=== PATIENT | female | born 1955 | race Caucasian/White ===

== ENCOUNTER 2021-09-28 18:39 | Outpatient (REF) | payer OTHER, SELFPAY ==
[2021-09-28 19:04] LABS: Bilirubin Negative (Negative); Blood Negative (Negative); Clarity Clear (Clear); Glucose Negative (Negative); Ketones Negative (Negative); Leukocyte Esterase Negative (Negative); Nitrite Negative (Negative); Specific Gravity 1.025 (1.005-1.025); Urobilinogen 0.2 EU/dL (Up TO 0.2); pH 6.5 (5-8)
== END 2021-09-28 18:40 | disposition home or self-care (01) ==
LOC: NCHCN 18:39
PROVIDERS: Visit Provider Nurse Practitioner Family
DX: N89.8 Other specified noninflammatory disorders of vagina (principal)
CPT/HCPCS: 81003; 87480; 87510; 87660

== ENCOUNTER 2022-02-10 16:40 | Outpatient (REF) | payer OTHER, SELFPAY ==
[2022-02-10 19:09] LABS: Abs Immature Grans 0.02 10^3/uL (0.0-0.06); Absolute Basophil Count 0.08 10^3/uL (0.0-0.2); Absolute Eosinophil Count 0.23 10^3/uL (0.0-0.7); Absolute Lymphocyte Count 2.14 10^3/uL (1.2-3.4); Absolute Monocyte Count 0.65 10^3/uL (0.1-0.8); Absolute Neutrophil Count 4.03 10^3/uL (1.2-6.7); Basophils % 1.1; Eosinophils % 3.2; HCT 39.2 % (36.0-46.0); Immature Grans % 0.3; Lymphocytes % 29.9; MCH 29.5 pg (27.0-33.0); MCHC 33.2 % (32.0-36.0); MCV 89 fL (80-95); MPV 10.6 fL (8.0-11.0); Monocytes % 9.1; Neutrophils % 56.4; Platelet Count 218 10^3/uL (130-400); RDW 12.7 % (11.7-14.6); RDW-SD 41.6 fL; WBC 7.15 10^3/uL (4.4-10.8)
[2022-02-10 19:18] LABS: Anion Gap 7.1 mmol/L (3-11); BUN 21 mg/dL (7-18); CO2 27.9 mmol/L (21.0-32.0); CREATININE 0.9 mg/dL (0.55-1.02); Calcium 8.6 mg/dL (8.5-10.1); Chloride 104 mmol/L (98-107); Estimated GFR 70.07 (mL/min/1.73m2); Glucose 136 mg/dL (74-106); Potassium 3.3 mmol/L (3.5-5.1); Sodium 139 mmol/L (136-145)
== END 2022-02-10 16:41 | disposition home or self-care (01) ==
LOC: LBN 16:40
PROVIDERS: Visit Provider Nurse Practitioner Family
DX: R10.9 Unspecified abdominal pain (principal); R19.7 Diarrhea, unspecified
CPT/HCPCS: 80048; 85025

== ENCOUNTER 2022-03-07 02:39 | Outpatient (CLI) | payer OTHER, SELFPAY ==
[2022-03-07] MEDS: Barium Sulfate 2% W/V-Berry Smoothie 450 ML BTL 900 ML PO (12:10)
--- NOTE | 2022-03-07 14:55 | DI.CT_ITS ---
Exam(s) CT ABDOMEN PELVIS W EXAM: CT ABDOMEN PELVIS W CLINICAL HISTORY: ABD PAIN R10.9 DIARRHEA R19.7. TECHNIQUE: Imaging Protocol: Axial computed tomography images with coronal and sagittal reformatted images were created and reviewed CONTRAST MATERIAL: Intravenous: Omnipaque 350 Contrast volume:100 ml Oral: yes COMPARISON: No exams were available for comparison FINDINGS: ABDOMEN: Lung Bases: Large hiatal hernia containing the entire stomach as well as duodenum and some mesenteric fat. No obstruction. Liver: Normal density. No measurable mass. Gallbladder and biliary tract: No radiodense calculus or dilation. Pancreas: Normal density, no abnormal calcifications or inflammatory process. Spleen: Normal. Kidneys: Normal size, contour and axis. No radiodense stones or obstructive uropathy. No masses seen. Large cyst lower pole right kidney. Adrenal glands: No masses seen. Abdominal Aorta: Abdominal portion non-dilated. PELVIS: Bladder: No gross wall thickening. No calculi.No focal mass. Small air bubble within bladder. This could be secondary to recent catheterization. Clinical correlation recommended. Bowel: Diverticulosis noted transverse, descending and sigmoid colon. No evidence of diverticulitis. Some contrast is seen within the sigmoid however this area is not well distended. There is a quest ionable area of focal wall thickening in the proximal sigmoid which could represent contraction. Mas s not entirely excluded. No dilatation proximally. colonoscopy correlation recommended. Normal anthony ntity of stool. Peritoneal cavity: No ascites, collection or mesenteric inflammatory response. Bones: Mild compression fracture superior endplate T12. Degenerative disc changes L4-5 and L5-S1. Reproductive organs: Unremarkable. Pessary noted. Lymph nodes: Unremarkable. Impression: Diverticulosis. No evidence of diverticulitis. Question of of area of narrowing in the sigmoid whic h could represent contraction, most muscular hypertrophy or mass. Correlation with colonoscopy recom mended. Large hiatal hernia without evidence of obstruction. Unexpected findings RADIATION DOSE DELIVERED: 1,052.69mGy.cm Total DLP DATA REPOSITORY: All CT scans at this facility are submitted to the National Radiology Data Registry (NRDR) Dose Index Registry (DIR) with the [employer] (ACR). RADIATION OPTIMIZATION: All CT scans at this facility use at least one of these dose optimization te chniques: automated exposure control; mA and/or kV adjustment per patient size (includes targeted exa ms where dose is matched to clinical indication); or iterative reconstruction.
[2022-03-07] MEDS: Omnipaque 350 MG/ML 500 ML BTL-Imaging package 100 ML IJ (15:05)
== END 2022-03-07 02:59 ==
LOC: DI 02:39
PROVIDERS: Visit Provider Nurse Practitioner Family
DX: K57.30 Diverticulosis of large intestine without perforation or abscess without bleeding (principal); K44.9 Diaphragmatic hernia without obstruction or gangrene
CPT/HCPCS: 74177

== ENCOUNTER 2022-03-07 11:00 | Outpatient (REF) | payer OTHER, SELFPAY ==
--- NOTE | 2022-03-07 09:45 | PAPFT_PTH ---
PATIENT: Liliana Keen LOC: [facility]#:[id number] AGE/SX: 66/F ROOM: RE03/07/[address]: Mayra Akins : 1955 BED: DIS: 03/07/2022 SPEC #: [id number] RECD: 03/08/22 12:48 STATUS: ERIC REQ #: [id number] NYASIA: 03/07/22 09:[address]: Rosalind Akins DEPT: [facility] Cytology RECD BY: Syeda Meredith ENTERED: 03/08/22 12:49 SP TYPE: PAPFT OT DR: Unknown,Unknown Tissues: 1 - CX/ENDOCX FOR PAP SMEARS Procedures: PAP THIN PREP/UVM Screening HPV DNA PROBE Comments: [id number]
== END 2022-03-07 11:01 | disposition home or self-care (01) ==
LOC: NCHCN 11:00
PROVIDERS: Visit Provider Nurse Practitioner Family
DX: Z11.51 Encounter for screening for human papillomavirus (HPV); Z01.419 Encounter for gynecological examination (general) (routine) without abnormal findings
CPT/HCPCS: 88142; 87624

== ENCOUNTER → 2022-03-11 12:47 | Outpatient (BNVA) | payer OTHER, SELFPAY | PROVIDERS: PCP Nurse Practitioner Family; Visit Provider Surgery | DX: R19.7 Diarrhea, unspecified (principal); K58.0 Irritable bowel syndrome with diarrhea; K57.90 Diverticulosis of intestine, part unspecified, without perforation or abscess without bleeding; E11.9 Type 2 diabetes mellitus without complications; K21.9 Gastro-esophageal reflux disease without esophagitis | CPT/HCPCS: 99204; 99243 ==

== ENCOUNTER 2022-03-22 16:44 | Outpatient (REF) | payer OTHER, SELFPAY ==
--- NOTE | 2022-03-22 14:30 | ENDOMET_PTH ---
PATIENT: Liliana Keen LOC: [facility] U#:[id number] AGE/SX: 66/F ROOM: RE03/22/[address]: Eli Mckinnon MD : 1955 BED: DIS: 03/22/2022 SPEC #: [id number] RECD: 03/22/22 17:37 STATUS: ERIC REQ #: [id number] NYASIA: 03/22/22 14:[address]: Eli Mckinnon DEPT: Surgical Specimen RECD BY: Syeda Meredith ENTERED: 03/22/22 17:38 SP TYPE: Endomet OTHR DR: Mayra Akins Tissues: 1 - ENDOMETRIUM BX/MICHEAL Procedures: GROSS AND MICRO LEVEL 4 Comments: [id number]
== END 2022-03-22 16:45 | disposition home or self-care (01) ==
LOC: LBN 16:44
PROVIDERS: PCP Nurse Practitioner Family; Visit Provider Obstetrics & Gynecology
DX: N95.0 Postmenopausal bleeding (principal); N85.01 Benign endometrial hyperplasia; N72 Inflammatory disease of cervix uteri; N85.8 Other specified noninflammatory disorders of uterus
CPT/HCPCS: 88305

== ENCOUNTER 2022-03-23 01:19 | Outpatient (CLI) | payer OTHER, SELFPAY ==
--- NOTE | 2022-03-23 | DI.MAMMO_ITS ---
Exam(s) MAMMO SCREENING EXAM: MAMMO SCREENING CLINICAL HISTORY: SCREENING, Z12.39 TECHNIQUE: Bilateral full field digital CC and MLO mammographic images were obtained with 3D tomosyn thesis and utilizing computer aided detection (CAD). COMPARISON: None. FINDINGS: Masses/Architectural Distortion: None seen. Microcalcifications: No suspicious pleomorphic-type are seen. Skin Thickening/Nipple Retraction: None. IMPRESSION: 1. No significant interval change with no specific features of malignancy noted. 2. Unless there is more urgent need, screening mammography is recommended, as per [employer] [place] guidelines. BI-RADS Category 1 - Negative Breast Density - Category B - Scattered areas of fibroglandular density Breast density category C or D implies that the patient has dense breast tissue. Dense breast tissue is very common and is not abnormal but dense breast tissue can make it harder to find cancer on a ma mmogram. Also, dense breast tissue may increase their breast cancer risk. This information about the result of the mammogram report was provided to the patient to raise their awareness. Use this report when you speak with the patient about their risks for breast cancer, which includes their family hist ory. At that time, you may recommend for more screening tests (Ultrasound or MRI) as they might be us eful based on their risk. A negative radiographic report should not delay biopsy if a dominant or clinically suspicious mass is present. Up to ten percent of cancers are not identified on mammography. A negative report may reinforce clinical impression. Adenosis and dense breasts may obscure an underlying neoplasm. False positive reports average 6 to 10%. Patient will receive a letter notifying them of these results.
== END 2022-03-23 01:39 ==
LOC: DI 01:19
PROVIDERS: PCP Nurse Practitioner Family; Visit Provider Nurse Practitioner Family
DX: Z12.31 Encounter for screening mammogram for malignant neoplasm of breast (principal)
CPT/HCPCS: 77063; 77067

== ENCOUNTER 2022-04-05 08:16 | Day surgery (SDC) | payer OTHER, SELFPAY ==
--- NOTE | 2022-04-04 20:48 | W.PM.DSUDISC ---
Date of service: 04/05/22 Time of Service: 10:24 Discharge Plan Disposition Patient Disposition: Home Condition: Good Discharge Details Reason For Visit: Colonoscopy Attending Provider: Valerio Hicks Primary Care Provider: Rosalind Akins Home Meds and New Rx's Prescriptions: Continued zinc acetate 50 mg (zinc) capsule 50 mg PO BID cholecalciferol (vitamin D3) 125 mcg (5,000 unit) capsule 125 mcg PO DAILY ascorbic acid (vitamin C) 1,000 mg capsule 1 g PO BID Label Comments: 03/22/22- pt reports taking one pill of Vitamin C twice a day, thinks that it might be 1000 mg. aspirin 81 mg tablet,delayed release (DR/EC) 81 mg PO DAILY bupropion HCl 150 mg tablet extended release 24 hr 150 mg PO QAM loperamide 2 mg capsule 4 mg PO TID PRN alendronate 70 mg tablet 70 mg PO QWEEK metformin 1,000 mg tablet 1,000 mg PO BID losartan 100 mg tablet 100 mg PO DAILY hydrochlorothiazide 25 mg tablet 25 mg PO DAILY atorvastatin 40 mg tablet 40 mg PO QHS Myrbetriq 50 mg tablet extended release 24 hr 50 mg PO DAILY metoprolol succinate 100 mg tablet extended release 24 hr 100 mg PO DAILY amlodipine 10 mg tablet 10 mg PO DAILY omeprazole 20 mg capsule,delayed release(DR/EC) 40 mg PO .am hyoscyamine sulfate 0.375 mg tablet extended release 12 hr 0.375 mg PO Q12H PRN citalopram 20 mg tablet 40 mg PO DAILY Discontinued polyethylene glycol 3350 17 gram/dose powder 238 g PO ONCE Qty: 238 0RF Rx Instructions: take per colonoscopy instructions bisacodyl [Dulcolax (bisacodyl)] 5 mg tablet,delayed release (DR/EC) 5 mg PO ONCE Qty: 4 0RF Rx Instructions: take per colonoscopy instructions Discharge Instructions Additional Instructions: And neck, we were able to complete your upper and lower endoscopies today without any difficulty. You have a large hiatal hernia. This would explain upper gastrointestinal discomfort like heartburn symptoms. This can be fixed with an operation, but it is not a procedure that the surgeons here performed. We are happy to place a referral if you would like a second opinion regarding the hiatal hernia management. During your colonoscopy, I performed random biopsies of multiple parts of the large intestine to see if I can explain your diarrhea. It would take a while for those biopsies to result, but we will set up an appointment with you and Dr. Huntley to review them. You also have diverticulosis, and 1 single rectal polyp. The polyp was removed completely. Again, it will take a little while to get the results of the polyp pathology report. 1. If tolerated, consume a soft, low fiber diet for 1-2 days. 2[address] Do not drive, drink alcohol, operate machinery, make critical decisions, or do activities that require coordination or balance for 24 hours. 3. Because air was put into your colon during the procedure, expelling air from your rectum (passing gas or farting) is normal. 4. You may not have a bowel movement for 1-3 days because of the colonoscopy prep. This is normal. 5. Go directly to the emergency room if you notice any of the following: Develop chills (warm to touch), or if you have a thermometer and your temperature is above 101 Difficulty breathing or difficultly swallowing Persistent vomiting Severe abdominal pain, other than gas cramps Severe chest pain Black, tarry stools Any bleeding ? exceeding one tablespoon 6. Call your physician if the site where your intravenous was started becomes red, swollen, painful, and warm to touch. 7. Your physician has reviewed your pre-procedure medications. Please continue to take those medications as previously ordered. You will be given specific information/education regarding any changes to your medications before leaving. Referrals: Radha Huntley DO [OSTEOPATHIC DOCTOR] - (2 weeks) Activity:: Activity as Tolerated Diet:: As Tolerated Discharge Orders Discharge Orders: Discharge Order (Routine); Ordered 04/04/22 Ordered By: Valerio Hicks DS: Diagnosis Discharge Diagnosis (1) Diarrhea: Status: Acute Asessment and Plan: We will schedule follow-up appointment with you and Dr. Huntley to discuss the pathology results from the random biopsies
--- NOTE | 2022-04-04 20:50 | COLE_ITS ---
Date of service: 04/05/22 Time of Service: 10:27 Colonoscopy Report Date of procedure: 04/05/22 Pre-op diagnosis general: Diarrhea Post-op diagnosis procedure note: other (Hiatal hernia, diverticulosis, rectal polyp) Procedure: Colonoscopy with polypectomy and random biopsies Surgeon: Valerio Hicks Anesthesia Type: General:No Airway Estimated blood loss (mL): 30 Pathology: other (Upper GI: Duodenal biopsies, gastric antrum and body biopsies. Colonoscopy: Random biopsies of the cecum, ascending, transverse, and descending colon's, rectal biopsies, rectal polyp) Complications: None Disposition: same day Indications: Liliana is a 66-year-old woman with gastroesophageal reflux disease, and chronic diarrhea. Prep: Miralax/Dulcolax Procedure Start Time: 09:41 Procedure End Time: 10:06 Retraction Time: 12 Findings: Huge hiatal hernia, mostly sigmoid diverticulosis. Rectal polyp. Procedure Description: After the initiation of monitored anesthetic care, and with the assistance of a bite block, I advanced a standard gastroscope through the mouth past the hypopharynx and into the esophagus.? Under the direct vision of the scope, I advanced down the esophagus into the stomach.? Once I entered the stomach, I performed a brief inspection, followed by retroflexion towards the gastric cardia.? With retroflexion, it was evident that there was a large hiatal hernia. A majority of the stomach was in the hernia sac, with the crura of the diaphragm evident past the incisura angularis, moving slightly along the gastric antrum. There was no inflammation of the mucosa. There were no ulcers here. I gently advanced through the pylorus into the duodenum. This was normal- appearing. I perform random biopsies of the duodenum before bringing the scope back into the stomach proper. There were some benign-appearing gastric polyps in the distribution of the gastric body consistent with fundic gland polyps. I continued to withdraw the endoscope back into the esophagus. The GE junction appeared to be around 37 cm. The Z-line was normal-appearing. These were both well above the hiatal hernia. I withdrew the camera along the length of the esophagus. The remainder of the esophagus was totally normal-appearing. Next we assisted and into the left lateral decubitus position. I began colonoscopy by performing an external anorectal exam.? Perineum and skin were normal, as was the anal verge.? There was no not evidence of external hemorrhoids.? Next, I performed a digital rectal exam.? I did appreciate any abnormal findings.? Next, I advanced a colonoscope into the rectal vault.? I performed retroflexion.? There was mild inflammation of the distal rectum just above the anus. This did not appear pathologic, and seemed most consistent with irritation from the bowel prep.? Using insufflation, I then advanced the colonoscope beyond the rectal folds and into the sigmoid colon before advancing towards the cecum.? There was sigmoid diverticulosis. The quality of the prep was excellent.? The scope was noted to be in the cecum by identification of the ileocecal valve and appendiceal orifice.? I then began withdrawing the colonoscope using repeated irrigation as necessary for full evaluation of the colonic mucosa. ?Once the scope was withdrawn to the level of the rectum, great care was taken to examine portions of the rectal folds.? Because of her chronic diarrhea, I performed random biopsies of the cecum, ascending, transverse and descending colon's. Also perform random biopsies of the rectum. I did find one rectal polyp. It was less than 0.5 cm. It was sessile. I removed it with cold forceps polypectomy. There was minimal bleeding. finally, the scope was withdrawn and the patient was brought to the same-day surgery recovery unit as the anesthetic wore off. ?The findings and instructions were shared with the patient prior to discharge.
[2022-04-05 08:34] VITALS: BP 155/98; PULSE 85; RESP 16; TEMP 36; O2SAT 98
--- NOTE | 2022-04-05 09:09 | W.ANESPRE ---
General Info Date of Service Date Performed: 04/05/22 Height: 5 ft 3 in Weight: 86 kg Body Mass Index (BMI): 33.5 Surgical Procedure: Operation Date: 04/05/22 09:50 Proposed Procedure Side Surgeon p Colonoscopy/Gastroscopy Valerio iHcks MD Meds Allergies and Home Medications Allergies Allergy/AdvReac Type Severity Reaction Status Date / Time Sulfa (Sulfonamide Allergy Unknown Verified 04/05/22 08:46 Antibiotics) lisinopril AdvReac Intermediate cough Verified 04/05/22 08:46 Home Medication Medication Instructions Recorded alendronate 70 mg tablet 70 mg PO QWEEK 02/24/22 amlodipine 10 mg tablet 10 mg PO DAILY 02/24/22 aspirin 81 mg tablet,delayed 81 mg PO DAILY 02/24/22 release atorvastatin 40 mg tablet 40 mg PO QHS 02/24/22 bupropion HCl 150 mg 24 hr tablet, 150 mg PO QAM 02/24/22 extended release hydrochlorothiazide 25 mg tablet 25 mg PO DAILY 02/24/22 hyoscyamine sulfate 0.375 mg 0.375 mg PO Q12H PRN 02/24/22 tablet,extended release,12 hr loperamide 2 mg capsule 4 mg PO TID PRN 02/24/22 losartan 100 mg tablet 100 mg PO DAILY 02/24/22 metformin 1,000 mg tablet 1,000 mg PO BID 02/24/22 metoprolol succinate 100 mg 100 mg PO DAILY 02/24/22 tablet,extended release 24 hr mirabegron 50 mg tablet,extended 50 mg PO DAILY 02/24/22 release 24 hr (Myrbetriq) omeprazole 20 mg capsule,delayed 40 mg PO .am 02/24/22 release cholecalciferol (vitamin D3) 125 125 mcg PO DAILY 03/11/22 mcg (5,000 unit) capsule citalopram 20 mg tablet 40 mg PO DAILY 03/11/22 zinc acetate 50 mg (zinc) capsule 50 mg PO BID 03/11/22 ascorbic acid (vitamin C) 1,000 mg 1 g PO BID 03/22/22 capsule Current Visit Medications: Current Medications Generic Name Dose Route Start Last Admin Trade Name Freq PRN Reason Stop Dose Admin Hyoscyamine Sulfate 0.125 mg 04/04/22 20:51 Hyoscyamine 0.125 Mg Sl/Oral/Chew SL DIRECTED PRN Ringer's Solution 1,000 mls @ 80 mls/hr 04/05/22 06:00 IV 05/04/22 23:59 INFUSION [facility] IV Miscellaneous Supplies 1 each 04/05/22 06:00 Iv Access IV 05/04/22 23:59 DIRECTED JOSETTE Ondansetron HCl 4 mg 04/04/22 20:51 Ondansetron 4 Mg/2 Ml Vial IVP Q4H PRN PRN Nausea / Vomiting Sodium Chloride 0 ml 04/05/22 06:00 Normal Saline Flush 10 Ml Syr IV 05/04/22 23:59 PRN PRN Sodium Chloride 0 ml 04/05/22 06:00 Normal Saline 10 Ml Vial IJ 05/04/22 23:59 DIRECTED PRN Sterile Water 0 ml 04/05/22 06:00 Water,Injection,Sterile 10 Ml Vial IJ 05/04/22 23:59 DIRECTED PRN PFSH Active Problems Active Problems: Problem Status Onset Code Abdominal pain, acute R10.9 Diarrhea R19.7 Irritable bowel syndrome with diarrhea K58.0 Hiatal hernia K44.9 Diverticulosis K57.90 Postmenopausal bleeding N95.0 Uterine prolapse N81.4 Medical History Medical History Abnormal bone radiograph Benign paroxysmal positional vertigo Depression Diabetes mellitus, type II Diverticulosis (~07/17/14) Essential hypertension GERD (gastroesophageal reflux disease) Glucosuria Hearing loss, bilateral Hyperlipidemia Kidney stone MARIE (obstructive sleep apnea) Osteoporosis Shortness of breath Medical History Comments:: 04/05/22 BP high on admission 168/125. BP repeat at 08:55am 155/98. Pt tearful as spouse passed recently. last took BP meds 04/03/22 Tobacco Smoking/Tobacco Use Status: Former Tobacco Use Alcohol Alcohol Intake: current Alcohol intake frequency: a few times a week Alcohol type: wine Substance Use Substance use: Never Substance use type: does not use Prental History History 12 Para 4 Hx # Term Pregnancies Multiple births Hx # Pregnancies Ectopic pregnancies AB induced Hx Number of Living Children AB spontaneous 8 Past Pregnancies Del. Date GA/Weeks # Preg Succ Route Wgt Sex Labor Lgth Anesthesia Location Prov Complic 06/14/73 vaginal Female Conn 06/18/74 4479.225 g Female Conn 05/30/77 vaginal 4365.827 g Female MADISON Wright 08/10/80 vaginal 4762.72 g Male Vital Signs and Lab Results Vital Signs Most Recent Vital Signs in EMR: Most Recent Vital Signs Temp Pulse Resp BP Pulse Ox 36 C L 85 16 155/98 H 98 04/05/22 08:34 04/05/22 08:34 04/05/22 08:34 04/05/22 08:34 04/05/22 08:34 Point of Care Results Point of Care Results: Finger Stick Blood Glucose 125 04/05/22 08:27 Lab Results Blood Type / Crossmatch: No Data to Display Complete Blood Count: No Data to Display Complete Metabolic Panel: No Data to Display Liver Function Panel: No Data to Display Coagulation Panel: No Data to Display Cardiac Panel: No Data to Display Arterial Blood Gas: No Data to Display Venous Blood Gas: No Data to Display Pancreas Panel: No Data to Display Thyroid Panel: No Data to Display Infectious Disease: No Data to Display Blood Cultures: No Data to Display Toxicology Panel: No Data to Display Anesthesia Assessment and Plan Anesthesia History Personal History: No History of Anesthesia Complications Family History: No Family History of Anesthesia Complications Exercise Tolerance Exercise Tolerance: Metabolic Equivalents>4 Pertinent Negatives Pertinent Negatives: No Symptoms of GERD Cardiac & Pulmonary Exam Cardiac Exam: Normal S1/S2 Heart Sounds Pulmonary Exam: Clear Bilateral Breath Sounds Implantable Cardiac Device Does patient have a Pacemaker or an ICD?: No Airway Exam Known Difficult Airway: No Mallampati Class: 1 Mouth Opening: Normal (> 3cm) Thyromental Distance: Greater than 3 cm Neck Range of Motion: Full ROM Neck Circumference: Normal Teeth Condition: Normal Dentition ASA Classification ASA Score: ASA 2 Emergency Case?: No NPO Status NPO Status: NPO Clears >2 hours, Solids >8 hours Anesthesia Plan Resuscitation Status: Full Code Anesthesia Technique: General Anesthesia Airway Planned: Natural Airway Monitors Used: Standard Monitors
[2022-04-05] MEDS: Lactated Ringers 1,000 ML 80 ML IV (09:10)
[2022-04-05 09:32] VITALS: BMI 33.5
--- NOTE | 2022-04-05 09:43 | BOWEL_PTH ---
PATIENT: Liliana Keen LOC: [facility] U#:[id number] AGE/SX: 66/F ROOM: RE04/05/[address]: Valerio Hicks MD : 1955 BED: DIS: 04/05/2022 SPEC #: [id number] RECD: 04/05/22 12:45 STATUS: ERIC RE #: [id number] NYASIA: 04/05/22 09:[address]: Valreio Hicks DEPT: Surgical Specimen RECD BY: Syeda Meredith ENTERED: 04/05/22 12:47 SP TYPE: Bowel OTHR DR: Mayra Akins Tissues: 1 - BIOPSY BOWEL 2 - STOMACH BIOPSY 3 - STOMACH BIOPSY 4 - BIOPSY BOWEL 5 - BIOPSY BOWEL 6 - BIOPSY BOWEL 7 - BIOPSY BOWEL 8 - BIOPSY BOWEL 9 - BIOPSY BOWEL Procedures: GROSS AND MICRO LEVEL 4 Comments: [id number]
[2022-04-05 10:10] VITALS: BP 110/70; PULSE 58; RESP 20; TEMP 36.3; O2SAT 95
[2022-04-05 10:35] VITALS: BP 145/98; PULSE 72; RESP 16; TEMP 36.2; O2SAT 98
--- NOTE | 2022-04-05 10:35 | W.ANESPOSTOP ---
Postoperative Evaluation Date, Time and Location Date Performed: 04/05/22 Time Performed: 10:15 Patient Location: Day Surgery Unit Vital Signs Most Recent Imported Vital Signs: Most Recent Vital Signs Temp Pulse Resp BP Pulse Ox 36.3 C L 58 L 20 110/70 95 04/05/22 10:10 04/05/22 10:10 04/05/22 10:10 04/05/22 10:10 04/05/22 10:10 Pain Score Most Recent Pain Score: Most Recent Pain Score Pain Level 0 04/05/22 10:10 Assessment Mental Status: Awake (Alert & Oriented to Patient Baseline) Airway and Respiratory Function: Patent airway with normal (patient baseline) respiratory exam Cardiovascular Function: Hemodynamically Stable Hydration Status: Adequately Hydrated Nausea & Vomiting: No Nausea or Vomiting Pain: Pt. Denies Any Pain Peripheral Nerve Block: Patient did not receive a nerve block
== END 2022-04-05 11:20 | disposition home or self-care (01) ==
PROVIDERS: PCP Nurse Practitioner Family; Visit Provider Surgery
PROC: (CPT 45380; principal; 2022-04-05 09:45)
DX: R19.7 Diarrhea, unspecified (principal); K62.1 Rectal polyp; K57.30 Diverticulosis of large intestine without perforation or abscess without bleeding; K44.9 Diaphragmatic hernia without obstruction or gangrene; K21.9 Gastro-esophageal reflux disease without esophagitis; K31.7 Polyp of stomach and duodenum; K52.89 Other specified noninfective gastroenteritis and colitis
CPT/HCPCS: 45380; 43239; 88305; J2704

== ENCOUNTER 2022-04-12 14:02 | Outpatient (CLI) | payer OTHER, SELFPAY ==
--- NOTE | 2022-04-12 13:15 | DI.US_ITS ---
Exam(s) US PELVIS TRANSVAGINAL EXAM: US PELVIS TRANSVAGINAL CLINICAL HISTORY: postmenopausal bleeding, N95.0 TECHNIQUE: Ultrasound of the pelvis was performed both transabdominal and transvaginal. COMPARISON: CT CT ABDOMEN PELVIS W from 03/07/2022 FINDINGS: UTERUS: Measures 6 cm length x 4 cm AP x 3 cm wide. There is anterior left of center fibroid near the fundus measuring 3 x 2 cm. Endometrial thickness measures 3 mm. There is no fluid in the endometrial canal. CERVIX: There are no obvious nabothian cysts. RIGHT OVARY: Measures 1.0 by 0.7 x 0.6 cm No significant cysts nor masses evident in the right ovary. LEFT OVARY: Measures 1.4 x 1.0 x 1.3 cm No significant cysts nor masses evident in the left ovary. CUL-DE-SAC: No free fluid evident. Incidentally noted is an 8 cm benign cyst in the right kidney, seen on prior CT scan. In the lower p ole of the left kidney there is a hyperechoic focus measuring 9-10 millimeters which may be a nonshad owing calculus or benign angiomyolipoma. IMPRESSION: 1. Small uterine fibroid. 2. No abnormal ovarian findings. 3. No free fluid evident in the adnexal regions and cul-de-sac. Incidental kidney findings as above. DATA REPOSITORY:
== END 2022-04-12 14:22 ==
LOC: DI 14:02
PROVIDERS: PCP Nurse Practitioner Family; Visit Provider Obstetrics & Gynecology
DX: N95.0 Postmenopausal bleeding (principal); N28.1 Cyst of kidney, acquired
CPT/HCPCS: 76830; 76856

== ENCOUNTER 2022-06-15 11:55 | Outpatient (REF) | payer OTHER, SELFPAY ==
[2022-06-15 21:17] LABS: Abs Immature Grans 0.01 10^3/uL (0.0-0.06); Absolute Basophil Count 0.07 10^3/uL (0.0-0.2); Absolute Lymphocyte Count 1.92 10^3/uL (1.2-3.4); Absolute Monocyte Count 0.56 10^3/uL (0.1-0.8); Absolute Neutrophil Count 3.17 10^3/uL (1.2-6.7); Basophils % 1.2; Eosinophils % 3.4; HGB 13.9 g/dL (11.2-15.7); Immature Grans % 0.2; Lymphocytes % 32.4; MCH 29.4 pg (27.0-33.0); MCHC 33.1 % (32.0-36.0); MCV 89 fL (80-95); MPV 12.1 fL (8.0-11.0); Monocytes % 9.4; Neutrophils % 53.4; Platelet Count 204 10^3/uL (130-400); RBC 4.72 10^6/uL (3.93-5.22); RDW 13.1 % (11.7-14.6); RDW-SD 42.8 fL; WBC 5.93 10^3/uL (4.4-10.8)
[2022-06-15 21:42] LABS: ALT 30 U/L (14-59); AST 23 U/L (15-37); Albumin 3.1 g/dL (3.4-5.0); Alkaline Phosphatase 59 U/L (46-116); Anion Gap 6.7 mmol/L (3-11); BUN 16 mg/dL (7-18); Bilirubin, Total 0.7 mg/dL (0.2-1.0); CO2 27.3 mmol/L (21.0-32.0); CREATININE 0.8 mg/dL (0.55-1.02); Calcium 8.5 mg/dL (8.5-10.1); Chloride 107 mmol/L (98-107); Estimated GFR 80.71 (mL/min/1.73m2); Glucose 154 mg/dL (74-106); Potassium 3.3 mmol/L (3.5-5.1); Sodium 141 mmol/L (136-145); Total Protein 7.4 g/dL (6.4-8.2)
== END 2022-06-15 11:56 | disposition home or self-care (01) ==
LOC: NCHCN 11:55
PROVIDERS: PCP Nurse Practitioner Family; Visit Provider Nurse Practitioner Family
DX: R07.9 Chest pain, unspecified (principal); R10.9 Unspecified abdominal pain
CPT/HCPCS: 80053; 85025

== ENCOUNTER 2022-06-18 10:24 | Emergency (ER) | payer OTHER, SELFPAY ==
[2022-06-18] VITALS (75 sets, daily range): BP systolic 105–182; BP diastolic 51–118; PULSE 41–110; RESP 10–23; TEMP 36.6–37.4; O2SAT 92–99
--- NOTE | 2022-06-18 10:30 | RT.EKG_ITS ---
APPROVED REPORT Exam: Resting ECG Reason for Exam: low heart rate Patient Location: E HR:55 bpm ECG Measurements Heart Rate 55 AXIS MA 182 P 43 QRSd 85 QRS 16 QT 449 T 30 QTc 431 Conclusion Sinus bradycardia...rate< 60 Anteroseptal infarct, age indeterminate...Q >35mS, T neg, V1-V2. Sinus. Normal axis. No STEMI. I have reviewed and interpreted ECG and agree with software generated interpretation.
--- NOTE | 2022-06-18 10:44 | ED.GENADUL_ITS ---
Discharge Plan Disposition Patient Disposition: Transfer-Acute Inpatient Care Specific Acute Inpt Facility: [facility] Discharge Details Chief Complaint: Nausea/Vomit/Diar Clinical Impression: Large hiatal hernia, Volvulus of stomach Primary Care Provider: Rosalind Akins ED Provider: Anita Carnes Home Meds and New Rx's Prescriptions: No Action zinc acetate 50 mg (zinc) capsule 50 mg PO BID cholecalciferol (vitamin D3) 125 mcg (5,000 unit) capsule 125 mcg PO DAILY ascorbic acid (vitamin C) 1,000 mg capsule 1 g PO BID Patient Comments: 03/22/22- pt reports taking one pill of Vitamin C twice a day, thinks that it might be 1000 mg. aspirin 81 mg tablet,delayed release (DR/EC) 81 mg PO DAILY bupropion HCl 150 mg tablet extended release 24 hr 150 mg PO QAM loperamide 2 mg capsule 4 mg PO TID PRN alendronate 70 mg tablet 70 mg PO QWEEK metformin 1,000 mg tablet 1,000 mg PO BID losartan 100 mg tablet 100 mg PO DAILY hydrochlorothiazide 25 mg tablet 25 mg PO DAILY atorvastatin 40 mg tablet 40 mg PO QHS Myrbetriq 50 mg tablet extended release 24 hr 50 mg PO DAILY metoprolol succinate 100 mg tablet extended release 24 hr 100 mg PO DAILY amlodipine 10 mg tablet 10 mg PO DAILY hyoscyamine sulfate 0.375 mg tablet extended release 12 hr 0.375 mg PO Q12H PRN citalopram 20 mg tablet 40 mg PO DAILY cholestyramine (with sugar) 4 gram powder 1 pwd PO DAILY Qty: 378 0RF Rx Instructions: administer w/meal; avoid other meds within 1hr before or 4-6hr after dose budesonide 3 mg capsule,delayed,extend.release 3 mg PO DAILY Qty: 84 2RF Rx Instructions: take 3 tablets every day Discharge Data Discharge Date/Time-TO BE ENTERED AT DEPARTURE: 06/18/22 19:32 Medical Decision Making 1040 -- 66-year-old female with a history of obesity, hypertension, hyperlipidemia, GERD, obstructive sleep apnea, diabetes, depression, vertigo, chronic urinary incontinence with pessary, hiatal hernia, appendectomy who presents with 2 weeks of nausea with dry heaving, diffuse abdominal pain with 3 episodes of radiation to her left chest and left arm. She also reports intermittent episodes of bradycardia with her heart rate as low as 35. EKG on arrival notes a rate of 55, sinus, normal axis, normal intervals vitals, no STEMI and nondiagnostic. Review of records notes that patient is taking metoprolol but states she has not been able to take it for 2 weeks. Review of previous records notes that her heart rate was in the 50s in March. Her blood pressure is hypertensive at 160/82. She otherwise appears comfortable and nontoxic. Her abdomen is soft, obese and diffusely tender but without rigidity or guarding. Her left anterior chest is tender to palpation. She does appear to have reproducible pain in her left shoulder with range of motion. Her distal pulses are intact and she has no other focal deficits. Differential diagnosis includes GERD, gastritis, PUD, small bowel obstruction. She has no tearing or ripping sensation to suggest dissection. She has no complaint of shortness of breath, leg pain or swelling, tachycardia or other risk factors to suggest PE. Considering her age and history, will obtain screening labs, CT chest abdomen pelvis and give a dose of IV Tylenol for shoulder pain and fluids as she has had diminished p.o. intake for the past 2 weeks. Review of records notes that patient had an EGD and colonoscopy on 04/05/2022 which showed no evidence of gastric ulcers. She was noted to have hiatal hernia, diverticulosis, rectal polyps. Her stomach pathology was negative. 1210 -- CT imaging reviewed. CT chest notes: 1. Large hiatal hernia has been present on prior examination. Not seen on prior examination is a portion of nonobstructed distal transverse colon and the hernia sac. 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 2. Atelectasis adjacent to the hernia sac. 3. Small left pleural effusion. CT abdomen and pelvis notes: 1. Large hiatal hernia with stomach and distal transverse colon within it. 2. Uncomplicated colonic diverticulosis. 3. Thickening of the inferior urinary bladder wall may be due to infection or neoplasm. 4. Bosniak II cyst in the right kidney. No further work-up recommended. Case discussed with Dr. Kumar --due to concern for volvulus and in the setting of bradycardia with concern for neurovascular compromise secondary to the hernia with compression on vagal nerve and local blood supply, will need transfer to a tertiary facility. 1300 -- Case d/w [facility] general surgery -- do not feel that the bradycardia is associated with the hiatal hernia or volvulus. Recommend considering NG tube for temporizing measure. Agree will need surgery for hiatal hernia and volvulus urgently but they do not have capacity. 1400 -- Case discussed with [facility] general surgery who recommended involving the volvulus team but agree with plan for NG tube. 1530 --contacted [facility], [facility], [facility] and [facility] and no capacity to accept patient. Discussed with [facility] and as patient has been doing well without vomiting or significant pain, can reassess to see if she improves after NG tube. Thus far she has had no output from the NG tube and has not had significant pain, or nausea and vomiting since arrival to the ED. [facility] has been unable to view the images and their general surgeon will not accept without review of the images. I discussed again with Dr. Kumar and she does not feel comfortable accepting the patient if she deteriorates and is in need of urgent cardiothoracic surgery. 1730 --Case discussed with Dr. Agee from CT surgery at [facility] she agrees for patient to be transferred for evaluation but would recommend ED to ED transfer. Case discussed with ED attending Dr. Villegas who accepts pt for transfer. 1800 --patient complaining of some diffuse headache. Her last dose of IV Tylenol was 7 hours ago, will give another dose. She is agreeable with transfer to [facility]. Her heart rate has mostly been between 50s and 70s but recently while sleeping in the 40s. Her blood pressure is 150/69. Medical Records Medical records reviewed: Yes I reviewed the patient's medical records. Imaging Data Radiologic Study: Radiologist's impression: CT Chest With Contrast; Diagnostic Exam date and time: 06/18/2022 11:28 AM Age: 66 years old Clinical indication: Other: Diffuse abd pain, radiating to L chest/shoulder TECHNIQUE: Imaging protocol: Diagnostic computed tomography of the chest with contrast. 3D rendering (Not supervised by radiologist): MIP and/or 3D reconstructed images were created by the technologist. Radiation optimization: All CT scans at this facility use at least one of these dose optimization techniques: automated exposure control; mA and/or kV adjustment per patient size (includes targeted exams where dose is matched to clinical indication); or iterative reconstruction. Contrast material: OMNIPAQUE 350; Contrast volume: 100 ml; Contrast route: INTRAVENOUS (IV);? COMPARISON: CT ABDOMEN PELVIS W 03/07/2022 2:55 PM FINDINGS: Thyroid: The thyroid gland is normal. Lungs: There is a mantle of left lower lobe atelectasis surrounding the hernia sac. Minimal amount of dependent atelectasis. No nodules, masses or other consolidations. Pleural spaces: Tiny amount of fluid in the left pleural space. No pneumothorax. Heart: Mild multi chamber cardiac enlargement. No pericardial effusion or coronary artery calcifications. Lymph nodes: Unremarkable. No enlarged lymph nodes. There are calcified right hilar nodes. Vasculature: Unremarkable. No aortic aneurysm.? Stomach and bowel: Large hiatal hernia containing the stomach and distal transverse colon. Organoaxial volvulus of the stomach. No signs of bowel obstruction. Bones/joints: Unremarkable. No acute fracture. Soft tissues: No soft tissue masses. IMPRESSION: 1. ? Large hiatal hernia has been present on prior examinations. Not seen on the prior examination is a portion of nonobstructed distal transverse colon in the hernia sac. The stomach is undergone organoaxial volvulus. 2. ? Atelectasis adjacent to the hernia sac. 3. ? Small left pleural effusion. CT Abdomen And Pelvis With Contrast Exam date and time: 06/18/2022 11:28 AM Age: 66 years old Clinical indication: Other: Diffuse abd pain, radiating to L chest/shoulder TECHNIQUE: Imaging protocol: Computed tomography of the abdomen and pelvis with contrast. 3D rendering (Not supervised by radiologist): MIP and/or 3D reconstructed images were created by the technologist. Radiation optimization: All CT scans at this facility use at least one of these dose optimization techniques: automated exposure control; mA and/or kV adjustment per patient size (includes targeted exams where dose is matched to clinical indication); or iterative reconstruction. Contrast material: OMNIPAQUE 350; Contrast volume: 100 ml; Contrast route: INTRAVENOUS (IV);? COMPARISON: CT ABDOMEN PELVIS W 03/07/2022 2:55 PM FINDINGS: Liver: The liver has heterogeneous enhancement consistent with fatty infiltration. There are no cysts, masses or dilated intrahepatic ducts. Gallbladder and bile ducts: There is no common bile duct dilation. Pancreas: The pancreas is normal. Spleen: The spleen is normal. Adrenal glands: The adrenal glands are normal. Kidneys and ureters: The lower pole of the right kidney has a large 7 cm cyst. There are calcification along the lateral wall. There are tiny lucencies within the renal cortices consistent with cyst too small to characterize. No hydronephrosis, nephrolithiasis or hydroureter. Stomach and bowel: In addition to the hiatal hernia containing stomach and distal transverse colon, there are multiple uncomplicated colonic diverticula. Appendix: No evidence of appendicitis. Intraperitoneal space: Unremarkable. No free air. No significant fluid collection. Vasculature: The vasculature demonstrates diffuse mild atherosclerotic calcification. No aortic aneurysm. Lymph nodes: Unremarkable. No enlarged lymph nodes. Urinary bladder: The urinary bladder has a small amount of fluid within it. The posterior inferior portion of the urinary bladder has thickening mucosa that may be due to acute or chronic infection or possibly malignancy. Reproductive: The posterior fundus/body of the uterus has a 2.8 cm enhancing fibroid. There is a pessary within the vagina. The adnexa are unremarkable. Bones/joints: The spine demonstrates moderate degenerative changes at multiple levels. Multilevel [id number] spinal stenosis and bilateral neural foraminal narrowing. Soft tissues: Small fat containing umbilical hernia. IMPRESSION: 1. ? Large hiatal hernia with stomach and distal transverse colon within it. 2. ? Uncomplicated colonic diverticulosis. 3. ? Thickening of the inferior urinary bladder wall may be due to infection or neoplasm. 4. ? Bosniak II cyst in the right kidney. No further workup recommended. Lab Data Lab results reviewed: Yes I reviewed the patient's lab results. Labs: Laboratory Tests Range/Units 06/18/22 06/18/22 06/18/22 10:55 10:55 12:25 WBC (4.4-10.8) 10^3/uL 6.86 RBC (3.93-5.22) 10^6/uL 4.50 Hgb (11.2-15.7) g/dL 13.4 Hct (36.0-46.0) % 40.1 MCV (80-95) fL 89 MCH (27.0-33.0) pg 29.8 MCHC (32.0-36.0) % 33.4 RDW (11.7-14.6) % 13.1 Plt Count (130-400) 10^3/uL 225 MPV (8.0-11.0) fL 10.5 Immature Gran % 0.3 Neutrophils % 60.4 Lymphocytes % 25.5 Monocytes % 10.1 Eosinophils % 2.5 Basophils % 1.2 Nucleated RBC % (0.0-0.3) % 0.0 Absolute Neutrophils (1.2-6.7) 10^3/uL 4.15 Absolute Lymphocytes (1.2-3.4) 10^3/uL 1.75 Absolute Monocytes (0.1-0.8) 10^3/uL 0.69 Absolute Eosinophils (0.0-0.7) 10^3/uL 0.17 Absolute Basophils (0.0-0.2) 10^3/uL 0.08 VBG Lactate (0.6-1.4) mmol/L Sodium (136-145) mmol/L 141 Potassium (3.5-5.1) mmol/L 3.1 L Chloride (98-107) mmol/L 108 H Carbon Dioxide (21.0-32.0) mmol/L 26.4 Anion Gap (3-11) mmol/L 6.6 BUN (7-18) mg/dL 27 H Creatinine (0.55-1.02) mg/dL 1.1 H Est GFR (CKD-EPI 2020) (mL/min/1.73m2) 55.07 Glucose (74-106) mg/dL 134 H Calcium (8.5-10.1) mg/dL 8.5 Magnesium (1.8-2.4) mg/dL 1.8 Total Bilirubin (0.2-1.0) mg/dL 0.4 AST (15-37) U/L 17 ALT (14-59) U/L 33 Alkaline Phosphatase (46-116) U/L 57 Troponin I (<or=60) ng/L < 50 Total Protein (6.4-8.2) g/dL 6.9 Albumin (3.4-5.0) g/dL 3.1 L Lipase (16-77) U/L 47 Urine Color (Yellow) Yellow Urine Clarity (Clear) Clear Urine pH (5-8) 6.0 Ur Specific [place] (1.005-1.025) 1.015 Urine Protein (Negative) mg/dL Negative Urine Ketones (Negative) mg/dL Negative Urine Blood (Negative) Negative Urine Nitrite (Negative) Negative Urine Bilirubin (Negative) Negative Urine Urobilinogen (Up to 0.2) mg/dL 0.2 Ur Leukocyte Esterase (Negative) Negative Urine Glucose (Negative) mg/dL Negative Range/Units 06/18/22 06/18/22 16:09 16:09 WBC (4.4-10.8) 10^3/uL 6.66 RBC (3.93-5.22) 10^6/uL 4.52 Hgb (11.2-15.7) g/dL 13.5 Hct (36.0-46.0) % 40.1 MCV (80-95) fL 89 MCH (27.0-33.0) pg 29.9 MCHC (32.0-36.0) % 33.7 RDW (11.7-14.6) % 13.0 Plt Count (130-400) 10^3/uL 231 MPV (8.0-11.0) fL 10.2 Immature Gran % 0.3 Neutrophils % 56.3 Lymphocytes % 31.5 Monocytes % 8.4 Eosinophils % 2.6 Basophils % 0.9 Nucleated RBC % (0.0-0.3) % 0.0 Absolute Neutrophils (1.2-6.7) 10^3/uL 3.75 Absolute Lymphocytes (1.2-3.4) 10^3/uL 2.10 Absolute Monocytes (0.1-0.8) 10^3/uL 0.56 Absolute Eosinophils (0.0-0.7) 10^3/uL 0.17 Absolute Basophils (0.0-0.2) 10^3/uL 0.06 VBG Lactate (0.6-1.4) mmol/L 1.0 Sodium (136-145) mmol/L Potassium (3.5-5.1) mmol/L Chloride (98-107) mmol/L Carbon Dioxide (21.0-32.0) mmol/L Anion Gap (3-11) mmol/L BUN (7-18) mg/dL Creatinine (0.55-1.02) mg/dL Est GFR (CKD-EPI 2020) (mL/min/1.73m2) Glucose (74-106) mg/dL Calcium (8.5-10.1) mg/dL Magnesium (1.8-2.4) mg/dL Total Bilirubin (0.2-1.0) mg/dL AST (15-37) U/L ALT (14-59) U/L Alkaline Phosphatase (46-116) U/L Troponin I (<or=60) ng/L Total Protein (6.4-8.2) g/dL Albumin (3.4-5.0) g/dL Lipase (16-77) U/L Urine Color (Yellow) Urine Clarity (Clear) Urine pH (5-8) Ur Specific [place] (1.005-1.025) Urine Protein (Negative) mg/dL Urine Ketones (Negative) mg/dL Urine Blood (Negative) Urine Nitrite (Negative) Urine Bilirubin (Negative) Urine Urobilinogen (Up to 0.2) mg/dL Ur Leukocyte Esterase (Negative) Urine Glucose (Negative) mg/dL ECG Data Attestation: I personally reviewed and interpreted this ECG (s) as follows: Interpretation: Rate of 55, sinus, normal axis, normal intervals, no STEMI. HPI General Mode of arrival: ambulatory . Date/Time Provider Initiated Documentation: 06/18/22 10:25 . Limitations to Documentation: no limitations . Information obtained by: patient . HPI Narrative: Patient is a 66-year-old female with a history of obesity, hypertension, hyperlipidemia, GERD, diabetes, vertigo, depression, urinary incontinence with history of pessary who presents with 2 weeks of diffuse abdominal pain with intermittent episodes of radiation to her left chest and left arm in addition to nausea and dry heaves. Patient states she has been unable to take any of her medications for the past 2 weeks due to her dry heaving. She states 2 days ago she was able to keep down her food without dry heaving. She states she does not actually vomit secondary to her hiatal hernia. She states when she attempts to eat, she can keep the food down usually or spit some of it up but usually has dry heaving after. She states when she last took her medications 2 weeks ago, she did spit up the pills due to dry heaving. She denies any hematemesis or lluvia ious vomiting. She states her abdominal pain is intermittent, sharp and burning starting in her lower abdomen radiating up to her upper abdomen and is occurring usually at random but is usually worse when she attempts to eat. She states she has had 3 episodes of the pain radiating from her abdomen to her left chest and into her left arm. She states she called her PCP regarding her symptoms and he advised her to start checking her heart rate due to her intermittent complaints of chest pain. She states today at work she felt weak and dizzy and checked her heart rate and it was 35. She states yesterday her heart rate was also as low as 35. She describes the dizziness as spinning and lightheadedness. She denies any headache, blurry vision, difficulty breathing, diarrhea or urinary symptoms. She states her last bowel movement was yesterday and soft and brown without rectal bleeding or rectal pain. She denies any new medications, alcohol use. Related Data Home Medications Medication Instructions Recorded Confirmed alendronate 70 mg tablet 70 mg PO QWEEK 02/24/22 06/18/22 amlodipine 10 mg tablet 10 mg PO DAILY 02/24/22 06/18/22 aspirin 81 mg tablet,delayed 81 mg PO DAILY 02/24/22 06/18/22 release atorvastatin 40 mg tablet 40 mg PO QHS 02/24/22 06/18/22 bupropion HCl 150 mg 24 hr tablet, 150 mg PO QAM 02/24/22 06/18/22 extended release hydrochlorothiazide 25 mg tablet 25 mg PO DAILY 02/24/22 06/18/22 hyoscyamine sulfate 0.375 mg 0.375 mg PO Q12H PRN 02/24/22 04/26/22 tablet,extended release,12 hr loperamide 2 mg capsule 4 mg PO TID PRN 02/24/22 06/18/22 losartan 100 mg tablet 100 mg PO DAILY 02/24/22 06/18/22 metformin 1,000 mg tablet 1,000 mg PO BID 02/24/22 06/18/22 metoprolol succinate 100 mg 100 mg PO DAILY 02/24/22 06/18/22 tablet,extended release 24 hr mirabegron 50 mg tablet,extended 50 mg PO DAILY 02/24/22 06/18/22 release 24 hr (Myrbetriq) cholecalciferol (vitamin D3) 125 125 mcg PO DAILY 03/11/22 04/26/22 mcg (5,000 unit) capsule citalopram 20 mg tablet 40 mg PO DAILY 03/11/22 06/18/22 zinc acetate 50 mg (zinc) capsule 50 mg PO BID 03/11/22 06/18/22 ascorbic acid (vitamin C) 1,000 mg 1 g PO BID 03/22/22 06/18/22 capsule cholestyramine (with sugar) 4 gram 1 pwd PO DAILY diarrhea #378 grams 05/05/22 oral powder budesonide 3 mg 3 mg PO DAILY lymphocytic colitis 05/11/22 06/18/22 capsule,delayed,extended release #84 caps Previous Rx's Medication Instructions Recorded cholestyramine (with sugar) 4 gram 1 pwd PO DAILY diarrhea #378 grams 05/05/22 oral powder budesonide 3 mg 3 mg PO DAILY lymphocytic colitis 05/11/22 capsule,delayed,extended release #84 caps Allergies Allergy/AdvReac Type Severity Reaction Status Date / Time Sulfa (Sulfonamide Allergy Unknown Verified 06/18/22 10:45 Antibiotics) lisinopril AdvReac Intermediate cough Verified 06/18/22 10:45 General Stated Complaint: Nausea/Vomit/Diar BARBARA: 3 Review of Systems All systems reviewed & are unremarkable except as noted in HPI and below Constitutional Constitutional: Reports as per HPI, Denies chills and Denies fever(s) Eyes Eyes: Denies blurry vision ENT Ears, Nose, Mouth, and Throat: Denies dizziness, Denies sore throat and Denies throat swelling Cardiovascular Cardiovascular: Reports chest pain and Denies dyspnea Respiratory Respiratory: Denies cough and Denies dyspnea Gastrointestinal Gastrointestinal: Reports abdominal pain, Denies diarrhea, Reports nausea and Denies vomiting Genitourinary Genitourinary: Denies hematuria and Denies dysuria Musculoskeletal Musculoskeletal: Denies back pain and Denies numbness Integumentary/Breasts Skin/Breast: Denies lesions and Denies rash Neurologic Neurologic: Denies dizziness, Denies localized weakness and Denies numbness Allergic/Immunologic Allergic/Immunologic: Denies throat swelling PFSH All Active Problems (Updated 06/20/22 @ 22:22 by Anita Carnes DO) Large hiatal hernia (Acute) Volvulus of stomach (Acute) Lymphocytic colitis (Acute) Abdominal pain, acute (Acute) Diarrhea (Chronic) Hiatal hernia (Chronic) Patient's entire stomach is in her chest on CT scan. Diverticulosis (Acute) Postmenopausal bleeding (Acute) Medical History (Updated 06/20/22 @ 22:22 by Anita Carnes DO) Benign paroxysmal positional vertigo Depression Diabetes mellitus, type II Diverticulosis (~07/17/14) Essential hypertension GERD (gastroesophageal reflux disease) Hearing loss, bilateral Hyperlipidemia Kidney stone MARIE (obstructive sleep apnea) Osteoporosis Presence of pessary Uterine prolapse Surgical History (Updated 06/18/22 @ 11:13 by Anita Carnes DO) History of appendectomy Social History Smoking/Tobacco Use Status: Former Tobacco Use Smoking risk assessment performed?: Yes Alcohol Intake: current Alcohol Intake frequency: a few times a week Alcohol type: wine Drug use: Never Substance use type: does not use Do you feel safe at home: Yes (pt lives alone) Female Reproductive History Menstrual Age of Menarche: 9 Duration of menses: 3-5 days Menopause type: natural History History 11 Para 4 Hx # Term Pregnancies Multiple births Hx # Pregnancies Ectopic pregnancies AB induced Hx Number of Living Children AB spontaneous 8 Past Pregnancies Del. Date GA/Weeks # Preg Succ Route Wgt Sex Labor Lgth Anesth esia Location Prov Complic 06/14/73 vaginal Female [place] 06/18/74 4479.225 g Female [place] 05/30/77 vaginal 4365.827 g Female [facility], [place] 08/10/80 vaginal 4762.72 g Male Exam Const General: cooperative and no acute distress Orientation: alert, awake and oriented x3 HENMT Head: normal to inspection Face and sinus: normal facial exam Eyes General: appearance normal, both eyes and all related structures Pupils: PERRL EOM: EOM intact bilaterally Neck Neck: normal visual inspection and No submandibular swelling Lymphatic: no lymphadenopathy noted Chest Chest: normal inspection of the chest and tenderness (left chest) Resp Effort & Inspection: normal respiratory effort and able to speak in complete sentences Auscultation: clear to auscultation bilaterally Cardio Rate: regular rate Rhythm: regular rhythm GI Inspection: normal to inspection Palpation: soft, not firm, not rigid and tender (throughout) Auscultation: hypoactive bowel sounds Back/Spine/Pelvis Thoracic/Lumbar Spine: thoracic and lumbar spine normal to inspection Pelvis: no pain with anterior-posterior compression Skin General skin exam: no rashes or lesions noted Neuro General: patient alert, patient awake and patient oriented x3 Cognition: normal cognition Speech: speech normal Motor: muscle tone normal throughout Sensory Exam: no sensory deficits noted Other: Sensory and motor grossly intact bilateral upper extremities. Extrem General: normal to inspection, capillary refill normal, no calf tenderness bilaterally and no edema Other: Pain in left shoulder with range of motion. Left shoulder and remainder of left upper extremity appears normal to inspection. Bilateral radial pulses intact. Psych Appearance: grossly normal Mental Status: mental status grossly normal Speech and Movement: speech and movement normal Affect: normal affect Course Vital Signs Vital signs: Vital Signs Temperature 99.3 F 06/18/22 10:27 Pulse 57 L 06/18/22 10:27 Respiratory Rate 20 06/18/22 10:27 Blood Pressure 160/82 H 06/18/22 10:27 Pulse Oximetry 96 06/18/22 10:27 Temperature 99.3 F 06/18/22 10:27 Temperature Source Oral 06/18/22 10:27 Pulse 57 L 06/18/22 10:27 Respiratory Rate 20 06/18/22 10:27 Respiratory Effort Normal, Non-Labored 06/18/22 10:38 Blood Pressure 160/82 H 06/18/22 10:27 Blood Pressure Position Sitting 06/18/22 10:27 Pulse Oximetry 96 06/18/22 10:27 Oxygen Delivery Method Room Air 06/18/22 10:27 Oxygen Flow Rate 0 06/18/22 10:27 Critical Care Time Critical Care Time Critical Care Time: Yes Total Critical Care Time: 120 Attestation: I spent 120 minutes of critical care time with this patient. This does not include time spent on separately reported billable procedures. PAWSS Have you Been Recently Intoxicated or Drunk Within the Last 30 days?: No Have you Ever Experienced Previous Episodes of Alcohol Withdrawal?: No Have you ever Experienced Withdrawal Seizures?: No Have you ever Experienced Delirium Tremens(DT)s?: No Have you ever undergone Alcohol Rehabilitation Treatment (i.e, inpt ot outpatient treatment programs)?: No Have you ever Experienced Blackouts?: No Have you ever Combined Alcohol with other Downers within the last 90 days?: No Have you ever Combined Alcohol with any other Substance of Abuse during the last 90 days?: No Positive Blood Alcohol level on Presentation? [PCS.BAL]: No Evidence of Increased Autonomic Activity (i.e. HR>120, tremor, sweating, agitation, nausea)?: No Result: 0
--- NOTE | 2022-06-18 11:00 | DI.CT_ITS ---
Exam(s) CT CHEST/ABD/PEL W EXAM: CT CHEST/ABD/PEL W CLINICAL HISTORY: diffuse abd pain, radiating to L chest/shoulder. TECHNIQUE: Imaging Protocol: Axial computed tomography images with coronal and sagittal reformatted images were created and reviewed CONTRAST MATERIAL: Intravenous: Omnipaque 350 Contrast volume:100 ml Oral: no COMPARISON: CT CT ABDOMEN PELVIS W from 03/07/2022 FINDINGS: CHEST: Large hiatal hernia. Organo-axial volvulus of the stomach. Some of dilatation of antrum of stomach and small amount of surrounding fluid. There is now a portion of the transverse colon extending into the hernia which does not appear obstructed. There is inflammation adjacent to the transit colon, b eneath the diaphragm consistent with uncomplicated diverticulitis. Tracheobronchial tree: Patent where visualized. Pulmonary parenchyma: Atelectasis adjacent to large hiatal hernia. No consolidation or dominant milo urable mass. Pleura: Tiny left pleural effusion. Lymph nodes: Within normal limits. Aorta: Thoracic portion non-dilated. Heart: Mildly enlarged. Bones: Unremarkable for age. No lytic or blastic lesions. Stable mild T12 compression fracture. De generative changes. ABDOMEN: Liver: Normal density. No measurable mass. Gallbladder and biliary tract: No radiodense calculus or dilation. Pancreas: Normal density, no abnormal calcifications or inflammatory process. Spleen: Normal. Kidneys: Normal size, contour and axis. No radiodense stones or obstructive uropathy. Stable appeara nce of large cyst lower pole left kidney. Other tiny cysts noted bilaterally. No suspicious masses seen. Adrenal glands: No masses seen. Aorta: Abdominal portion non-dilated. Lymph nodes: Within normal limits. Soft tissues: Unremarkable. PELVIS: Bladder: Symmetric distention. Mild wall thickening, greater posteriorly.. Bowel: Diverticulosis seen from transverse through sigmoid region. No obstruction or bowel wall thic kening. Peritoneal cavity: No ascites, collection or mesenteric inflammatory response. Bones: Degenerative changes. 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 Reproductive organs: Uterine fibroid. Pessary. IMPRESSION: Large hiatal hernia containing the stomach which shows organo-axial volvulus. Inflammation at the an trum of the stomach with some adjacent fluid. The hernia now contains a portion of the transverse co abran. There is some inflammation in the upper abdomen surrounding areas of diverticulosis, suspicious for diverticulitis of the transverse colon below the diaphragm.. RADIATION DOSE DELIVERED: 1,304.86mGy.cm Total DLP DATA REPOSITORY: All CT scans at this facility are submitted to the National Radiology Data Registry (NRDR) Dose Index Registry (DIR) with the [employer] (ACR). RADIATION OPTIMIZATION: All CT scans at this facility use at least one of these dose optimization te chniques: automated exposure control; mA and/or kV adjustment per patient size (includes targeted exa ms where dose is matched to clinical indication); or iterative reconstruction.
[2022-06-18 11:18] LABS: Abs Immature Grans 0.02 10^3/uL (0.0-0.06); Absolute Basophil Count 0.08 10^3/uL (0.0-0.2); Absolute Eosinophil Count 0.17 10^3/uL (0.0-0.7); Absolute Lymphocyte Count 1.75 10^3/uL (1.2-3.4); Absolute Monocyte Count 0.69 10^3/uL (0.1-0.8); Absolute Neutrophil Count 4.15 10^3/uL (1.2-6.7); Basophils % 1.2; Eosinophils % 2.5; HCT 40.1 % (36.0-46.0); HGB 13.4 g/dL (11.2-15.7); Immature Grans % 0.3; Lymphocytes % 25.5; MCH 29.8 pg (27.0-33.0); MCHC 33.4 % (32.0-36.0); MCV 89 fL (80-95); MPV 10.5 fL (8.0-11.0); Monocytes % 10.1; Neutrophils % 60.4; Platelet Count 225 10^3/uL (130-400); RDW 13.1 % (11.7-14.6); RDW-SD 42.7 fL; WBC 6.86 10^3/uL (4.4-10.8)
[2022-06-18] MEDS: Omnipaque 350 MG/ML 100 ML BTL IJ (11:31)
[2022-06-18] MEDS: Normal Saline - Diluent 50 ML VIAL IJ (11:36)
[2022-06-18] MEDS: Normal Saline Flush 10 ML SYR IVP (11:36)
[2022-06-18 11:40] LABS: ALT 33 U/L (14-59); AST 17 U/L (15-37); Albumin 3.1 g/dL (3.4-5.0); Alkaline Phosphatase 57 U/L (46-116); Anion Gap 6.6 mmol/L (3-11); BUN 27 mg/dL (7-18); Bilirubin, Total 0.4 mg/dL (0.2-1.0); CO2 26.4 mmol/L (21.0-32.0); CREATININE 1.1 mg/dL (0.55-1.02); Calcium 8.5 mg/dL (8.5-10.1); Chloride 108 mmol/L (98-107); Estimated GFR 55.07 (mL/min/1.73m2); Glucose 134 mg/dL (74-106); Lipase 47 U/L (16-77); Magnesium 1.8 mg/dL (1.8-2.4); Potassium 3.1 mmol/L (3.5-5.1); Sodium 141 mmol/L (136-145); Total Protein 6.9 g/dL (6.4-8.2); Troponin I < 50 ng/L (<or=60)
[2022-06-18] MEDS: ACETAMINOPHEN 1,000 MG/100 ML BTL 400 MG IVPB ×2 (11:44→18:11)
[2022-06-18] MEDS: Normal Saline 1,000 ML 1000 ML IV (11:44)
--- NOTE | 2022-06-18 12:06 | DI.VRAD_ITS ---
PROCEDURE INFORMATION: Exam: CT Chest With Contrast; Diagnostic Exam date and time: 06/18/2022 11:28 AM Age: 66 years old Clinical indication: Other: Diffuse abd pain, radiating to L chest/shoulder TECHNIQUE: Imaging protocol: Diagnostic computed tomography of the chest with contrast. 3D rendering (Not supervised by radiologist): MIP and/or 3D reconstructed images were created by the technologist. Radiation optimization: All CT scans at this facility use at least one of these dose optimization techniques: automated exposure control; mA and/or kV adjustment per patient size (includes targeted exams where dose is matched to clinical indication); or iterative reconstruction. Contrast material: OMNIPAQUE 350; Contrast volume: 100 ml; Contrast route: INTRAVENOUS (IV); COMPARISON: CT ABDOMEN PELVIS W 03/07/2022 2:55 PM FINDINGS: Thyroid: The thyroid gland is normal. Lungs: There is a mantle of left lower lobe atelectasis surrounding the hernia sac. Minimal amount of dependent atelectasis. No nodules, masses or other consolidations. Pleural spaces: Tiny amount of fluid in the left pleural space. No pneumothorax. Heart: Mild multi chamber cardiac enlargement. No pericardial effusion or coronary artery calcifications. Lymph nodes: Unremarkable. No enlarged lymph nodes. There are calcified right hilar nodes. Vasculature: Unremarkable. No aortic aneurysm. Stomach and bowel: Large hiatal hernia containing the stomach and distal transverse colon. Organoaxial volvulus of the stomach. No signs of bowel obstruction. Bones/joints: Unremarkable. No acute fracture. Soft tissues: No soft tissue masses. IMPRESSION: 1. Large hiatal hernia has been present on prior examinations. Not seen on the prior examination is a portion of nonobstructed distal transverse colon in the hernia sac. The stomach is undergone organoaxial volvulus. 2. Atelectasis adjacent to the hernia sac. 3. Small left pleural effusion. PROCEDURE INFORMATION: Exam: CT Abdomen And Pelvis With Contrast Exam date and time: 06/18/2022 11:28 AM Age: 66 years old Clinical indication: Other: Diffuse abd pain, radiating to L chest/shoulder TECHNIQUE: Imaging protocol: Computed tomography of the abdomen and pelvis with contrast. 3D rendering (Not supervised by radiologist): MIP and/or 3D reconstructed images were created by the technologist. Radiation optimization: All CT scans at this facility use at least one of these dose optimization techniques: automated exposure control; mA and/or kV adjustment per patient size (includes targeted exams where dose is matched to clinical indication); or iterative reconstruction. Contrast material: OMNIPAQUE 350; Contrast volume: 100 ml; Contrast route: INTRAVENOUS (IV); COMPARISON: CT ABDOMEN PELVIS W 03/07/2022 2:55 PM FINDINGS: Liver: The liver has heterogeneous enhancement consistent with fatty infiltration. There are no cysts, masses or dilated intrahepatic ducts. Gallbladder and bile ducts: There is no common bile duct dilation. Pancreas: The pancreas is normal. Spleen: The spleen is normal. Adrenal glands: The adrenal glands are normal. Kidneys and ureters: The lower pole of the right kidney has a large 7 cm cyst. There are calcification along the lateral wall. There are tiny lucencies within the renal cortices consistent with cyst too small to characterize. No hydronephrosis, nephrolithiasis or hydroureter. Stomach and bowel: In addition to the hiatal hernia containing stomach and distal transverse colon, there are multiple uncomplicated colonic diverticula. Appendix: No evidence of appendicitis. Intraperitoneal space: Unremarkable. No free air. No significant fluid collection. Vasculature: The vasculature demonstrates diffuse mild atherosclerotic calcification. No aortic aneurysm. Lymph nodes: Unremarkable. No enlarged lymph nodes. Urinary bladder: The urinary bladder has a small amount of fluid within it. The posterior inferior portion of the urinary bladder has thickening mucosa that may be due to acute or chronic infection or possibly malignancy. Reproductive: The posterior fundus/body of the uterus has a 2.8 cm enhancing fibroid. There is a pessary within the vagina. The adnexa are unremarkable. Bones/joints: The spine demonstrates moderate degenerative changes at multiple levels. Multilevel mgul-kg-pxetrkhg spinal stenosis and bilateral neural foraminal narrowing. Soft tissues: Small fat containing umbilical hernia. IMPRESSION: 1. Large hiatal hernia with stomach and distal transverse colon within it. 2. Uncomplicated colonic diverticulosis. 3. Thickening of the inferior urinary bladder wall may be due to infection or neoplasm. 4. Bosniak II cyst in the right kidney. No further workup recommended. Dictated and Authenticated by: Félix Gil MD. Ordering:MAKENNA Howard MD
[2022-06-18] MEDS: POTASSIUM CHLORIDE 20 MEQ/100 ML BAG 50 MEQ IVPB (12:11)
[2022-06-18 12:39] LABS: Bilirubin Negative (Negative); Blood Negative (Negative); Clarity Clear (Clear); Glucose Negative (Negative); Ketones Negative (Negative); Leukocyte Esterase Negative (Negative); Nitrite Negative (Negative); Specific Gravity 1.015 (1.005-1.025); Urobilinogen 0.2 mg/dL (Up to 0.2)
--- NOTE | 2022-06-18 15:30 | DI.RAD_ITS ---
Exam(s) XR CHEST 2V PA LATERAL EXAM: XR CHEST 2V PA LATERAL CLINICAL HISTORY: assess for placement of NG tube TECHNIQUE: 2D digital imaging was performed. COMPARISON: CT CT ABDOMEN PELVIS W from 03/07/2022 FINDINGS: Large hiatal hernia. Nasogastric tube has been inserted which lies within the hernia, above the diap hragm. HEART: Cardiac silhouette obscured by large hiatal hernia on the PA view. Aorta: Not dilated. PULMONARY VASCULATURE: Normal. LUNGS: Clear. PLEURAL SPACE: No pleural effusion or pneumothorax. BONE:Unremarkable for age. IMPRESSION: Large hiatal hernia. The gastric tube projects within the stomach. DATA REPOSITORY: RADIATION DOSE DELIVERED:
--- NOTE | 2022-06-18 16:06 | DI.VRAD_ITS ---
PROCEDURE INFORMATION: Exam: XR Chest Exam date and time: 06/18/2022 3:58 PM Age: 66 years old Clinical indication: Device placement; Patient HX: Assess for placement of ng tube TECHNIQUE: Imaging protocol: Radiologic exam of the chest. Views: 2 views. COMPARISON: CT CHEST/ABD/PEL W 06/18/2022 11:28 AM FINDINGS: Tubes, catheters and devices: Nasogastric tube is likely in the midportion of the stomach because of the stomach organoaxial volvulus in the huge hiatal hernia. Lungs: The lung volumes are mildly increased. Compressive atelectasis of the left lower lobe adjacent to the large hiatal hernia. No lobar consolidations. Pleural spaces: Unremarkable. No pleural effusion. No pneumothorax. Heart/Mediastinum: Mild multi chamber cardiac enlargement. The aorta is normal in diameter. Bones/joints: Unremarkable. IMPRESSION: Probable standard placement of the nasogastric tube with tip in the midportion of the stomach. Dictated and Authenticated by: Félix Gil MD. Ordering:MAKENNA Howard MD
[2022-06-18 16:16] LABS: Abs Immature Grans 0.02 10^3/uL (0.0-0.06); Absolute Basophil Count 0.06 10^3/uL (0.0-0.2); Absolute Eosinophil Count 0.17 10^3/uL (0.0-0.7); Absolute Monocyte Count 0.56 10^3/uL (0.1-0.8); Absolute Neutrophil Count 3.75 10^3/uL (1.2-6.7); Basophils % 0.9; Eosinophils % 2.6; HCT 40.1 % (36.0-46.0); HGB 13.5 g/dL (11.2-15.7); Immature Grans % 0.3; Lymphocytes % 31.5; MCH 29.9 pg (27.0-33.0); MCHC 33.7 % (32.0-36.0); MCV 89 fL (80-95); MPV 10.2 fL (8.0-11.0); Monocytes % 8.4; Neutrophils % 56.3; Platelet Count 231 10^3/uL (130-400); RBC 4.52 10^6/uL (3.93-5.22); RDW-SD 42.7 fL; WBC 6.66 10^3/uL (4.4-10.8)
--- NOTE | 2022-06-18 18:01 | NUR.NOTE ---
Nursing Note: Patients HR consistently in low 40's. Patient feels tired. Notified provider.
--- NOTE | 2022-06-18 19:49 | NUR.NOTE ---
Nursing Note: Pt out of ER with EMS for transfer. Report given to MARS Dias-B.
== END 2022-06-18 19:32 | disposition short-term general hospital (02) ==
LOC: ER 10:35
PROVIDERS: Emergency Provider Physician Assistant; PCP Nurse Practitioner Family
DX: K44.9 Diaphragmatic hernia without obstruction or gangrene (principal); K56.2 Volvulus; I10 Essential (primary) hypertension; E11.9 Type 2 diabetes mellitus without complications; R00.1 Bradycardia, unspecified; Z90.49 Acquired absence of other specified parts of digestive tract; Z79.82 Long term (current) use of aspirin; Z79.84 Long term (current) use of oral hypoglycemic drugs
CPT/HCPCS: 36415; 74177; 80053; 83690; 93005; 96361; 96365; 96366; 96375; 99291; 99292; 71046; 71260; 81003; 83605; 83735; 84484; 85025; 93010; J0131; J3480; J3490

== ENCOUNTER 2022-06-29 12:12 | Outpatient (REF) | payer OTHER, SELFPAY ==
--- NOTE | 2022-06-29 11:45 | VAG_PTH ---
PATIENT: Liliana Keen LOC: [facility] U#:[id number] AGE/SX: 66/F ROOM: RE06/29/[address]: Eli Mckinnon MD : [id number] BED: DIS: 06/29/2022 SPEC #: [id number] RECD: 06/29/22 16:06 STATUS: ERIC REQ #: [id number] NYASIA: 06/29/22 11:[address]: Eli Mckinnon DEPT: Surgical Specimen RECD BY: Syeda Meredith ENTERED: 06/29/22 16:06 SP TYPE: VAG OTHR DR: Mayra Akins Tissues: 1 - VAGINAL BIOPSY Procedures: GROSS AND MICRO LEVEL 4 Comments: [id number]
== END 2022-06-29 12:13 | disposition home or self-care (01) ==
LOC: LBN 12:12
PROVIDERS: PCP Nurse Practitioner Family; Visit Provider Obstetrics & Gynecology
DX: N76.5 Ulceration of vagina; N93.8 Other specified abnormal uterine and vaginal bleeding
CPT/HCPCS: 88305

== ENCOUNTER 2022-07-22 13:52 | Emergency (ER) | payer OTHER, SELFPAY ==
[2022-07-22 13:57] VITALS: BP 156/96; PULSE 100; RESP 20; TEMP 37.3; O2SAT 98
--- NOTE | 2022-07-22 14:13 | W.ED.GENAD ---
Discharge Plan Discharge Details Chief Complaint: Abd Prob Primary Care Provider: Rosalind Akins ED Provider: Giuseppe Sol Home Meds and New Rx's Prescriptions: No Action zinc acetate 50 mg (zinc) capsule 50 mg PO BID ascorbic acid (vitamin C) 1,000 mg capsule 1 g PO BID Patient Comments: 03/22/22- pt reports taking one pill of Vitamin C twice a day, thinks that it might be 1000 mg. vitamin B complex Tablet 1 tab PO DAILY aspirin 81 mg tablet,delayed release (DR/EC) 81 mg PO DAILY bupropion HCl 150 mg tablet extended release 24 hr 150 mg PO QAM loperamide 2 mg capsule 4 mg PO TID PRN alendronate 70 mg tablet 70 mg PO QWEEK metformin 1,000 mg tablet 1,000 mg PO BID losartan 100 mg tablet 100 mg PO DAILY hydrochlorothiazide 25 mg tablet 25 mg PO DAILY atorvastatin 40 mg tablet 40 mg PO QHS Myrbetriq 50 mg tablet extended release 24 hr 50 mg PO DAILY metoprolol succinate 100 mg tablet extended release 24 hr 100 mg PO DAILY amlodipine 10 mg tablet 10 mg PO DAILY hyoscyamine sulfate 0.375 mg tablet extended release 12 hr 0.375 mg PO Q12H PRN citalopram 20 mg tablet 40 mg PO DAILY cholestyramine (with sugar) 4 gram powder 1 pwd PO DAILY Qty: 378 0RF Rx Instructions: administer w/meal; avoid other meds within 1hr before or 4-6hr after dose budesonide 3 mg capsule,delayed,extend.release 3 mg PO DAILY Qty: 84 2RF Rx Instructions: take 3 tablets every day Medical Decision Making 67-year-old lady presents to the emergency department for evaluation of abdominal pain. She is status post lysis of adhesions within the past 2 weeks She will require blood work as well as a CAT scan of the abdomen pelvis to rule out recurrent obstruction. Patient treated with morphine and ondansetron. IV fluids ordered. Metabolic work-up in progress as well as CT scan of the abdomen pelvis. At the time of signout CT scan results were pending. The patient was found to have a mild hypokalemia. Her BUN to creatinine ratio was mildly elevated she will require more IV fluids. Patient signed out to Dr. Perez. HPI General Date/Time Provider Initiated Documentation: 07/22/22 13:58. HPI Narrative: 67-year-old presents to the emergency room with abdominal pain. Abdominal pain started this morning when she woke up. Associated with nausea vomiting. No fevers no chills. No diarrhea. She says she has had 4 or 5 small bowel movements. No dysuria. No CVAT. No frequency Patient is status post lysis of adhesion laparoscopy approximately 2 weeks ago at [facility]. Related Data Home Medications Medication Instructions Recorded Confirmed alendronate 70 mg tablet 70 mg PO QWEEK 02/24/22 07/22/22 amlodipine 10 mg tablet 10 mg PO DAILY 02/24/22 07/22/22 aspirin 81 mg tablet,delayed 81 mg PO DAILY 02/24/22 07/22/22 release atorvastatin 40 mg tablet 40 mg PO QHS 02/24/22 07/22/22 bupropion HCl 150 mg 24 hr tablet, 150 mg PO QAM 02/24/22 07/22/22 extended release hydrochlorothiazide 25 mg tablet 25 mg PO DAILY 02/24/22 07/22/22 hyoscyamine sulfate 0.375 mg 0.375 mg PO Q12H PRN 02/24/22 07/22/22 tablet,extended release,12 hr loperamide 2 mg capsule 4 mg PO TID PRN 02/24/22 07/22/22 losartan 100 mg tablet 100 mg PO DAILY 02/24/22 07/22/22 metformin 1,000 mg tablet 1,000 mg PO BID 02/24/22 07/22/22 metoprolol succinate 100 mg 100 mg PO DAILY 02/24/22 07/22/22 tablet,extended release 24 hr mirabegron 50 mg tablet,extended 50 mg PO DAILY 02/24/22 07/22/22 release 24 hr (Myrbetriq) citalopram 20 mg tablet 40 mg PO DAILY 03/11/22 07/22/22 zinc acetate 50 mg (zinc) capsule 50 mg PO BID 03/11/22 07/22/22 ascorbic acid (vitamin C) 1,000 mg 1 g PO BID 03/22/22 07/22/22 capsule cholestyramine (with sugar) 4 gram 1 pwd PO DAILY diarrhea #378 grams 05/05/22 07/22/22 oral powder budesonide 3 mg 3 mg PO DAILY lymphocytic colitis 05/11/22 07/22/22 capsule,delayed,extended release #84 caps vitamin B complex 1 tab PO DAILY 06/29/22 07/22/22 Previous Rx's Medication Instructions Recorded cholestyramine (with sugar) 4 gram 1 pwd PO DAILY diarrhea #378 grams 05/05/22 oral powder budesonide 3 mg 3 mg PO DAILY lymphocytic colitis 05/11/22 capsule,delayed,extended release #84 caps Allergies Allergy/AdvReac Type Severity Reaction Status Date / Time Sulfa (Sulfonamide Allergy Unknown Verified 07/22/22 14:01 Antibiotics) lisinopril AdvReac Intermediate cough Verified 07/22/22 14:01 General Stated Complaint: Abd Prob BARBARA: 3 Review of Systems Narrative: 10 point review of system is negative unless otherwise specified in the HPI. PFSH All Active Problems (Updated 07/19/22 @ 00:20 by LingvistJeanine MIKE) Abdominal pain, acute (Acute) Diarrhea (Chronic) Hiatal hernia (Chronic) Patient's entire stomach is in her chest on CT scan. Diverticulosis (Acute) Postmenopausal bleeding (Acute) Lymphocytic colitis (Acute) Vaginal erosion (Acute) Medical History (Updated 07/19/22 @ 00:20 by LAURA MIKE) Benign paroxysmal positional vertigo Depression Diabetes mellitus, type II Diverticulosis (~07/17/14) Essential hypertension GERD (gastroesophageal reflux disease) Hearing loss, bilateral Hyperlipidemia Kidney stone MARIE (obstructive sleep apnea) Osteoporosis Presence of pessary Uterine prolapse Surgical History (Updated 06/29/22 @ 11:52 by Eli Mckinnon MD) History of anterior colporrhaphy with posterior colporrhaphy and sacrospinous vaginal vault fixation 12/25/[address] Anderson at [facility] History of appendectomy History of suburethral sling procedure with cystoscopy 12/25/[address] Anderson at [facility] Social History Smoking/Tobacco Use Status: Former Tobacco Use Smoking risk assessment performed?: Yes Alcohol Intake: current Alcohol Intake frequency: a few times a week Alcohol type: wine Drug use: Never Substance use type: does not use Do you feel safe at home: Yes (pt lives alone) Female Reproductive History Menstrual Age of Menarche: 9 Duration of menses: 3-5 days Menopause type: natural History History 11 Para 4 Hx # Term Pregnancies Multiple births Hx # Pregnancies Ectopic pregnancies AB induced Hx Number of Living Children AB spontaneous 8 Past Pregnancies Del. Date GA/Weeks # Preg Succ Route Wgt Sex Labor Lgth Anesthesia Location Prov Complic 06/14/73 vaginal Female Conn 06/18/74 4479.225 g Female Conn 05/30/77 vaginal 4365.827 g Female [place], [place] 08/10/80 vaginal 4762.72 g Male Exam Narrative Exam Narrative: Awake alert x3 calm mild distress PERRLA EOMI MMM Supple neck Chest clear to auscultation Heart regular rhythm rate Abdomen soft diffuse tenderness positive guarding No CVAT Skin no rashes Neuro grossly intact Psych anxious Course Vital Signs Vital signs: Vital Signs Temperature 37.3 C 07/22/22 13:57 Pulse 100 H 07/22/22 13:57 Respiratory Rate 20 07/22/22 13:57 Blood Pressure 156/96 H 07/22/22 13:57 Pulse Oximetry 98 07/22/22 13:57 Temperature 37.3 C 07/22/22 13:57 Temperature Source Temporal Artery Scan 07/22/22 13:57 Pulse 100 H 07/22/22 13:57 Respiratory Rate 20 07/22/22 13:57 Respiratory Effort Normal 07/22/22 13:59 Blood Pressure 156/96 H 07/22/22 13:57 Blood Pressure Position Sitting 07/22/22 13:57 Pulse Oximetry 98 07/22/22 13:57 Oxygen Delivery Method Room Air 07/22/22 13:57 Oxygen Flow Rate 0 07/22/22 13:57 Pain Level 9 07/22/22 13:57
--- NOTE | 2022-07-22 14:15 | DI.CT_ITS ---
Exam(s) CT ABDOMEN PELVIS W EXAM: CT ABDOMEN PELVIS W CLINICAL HISTORY: abd pain. TECHNIQUE: Imaging Protocol: Axial computed tomography images with coronal and sagittal reformatted images were created and reviewed CONTRAST MATERIAL: Intravenous: Omnipaque-350 100cc Oral: None COMPARISON: CT CT CHEST/ABD/PEL W from 06/18/2022 FINDINGS: VISUALIZED LUNG BASES: No nodules nor pleural effusions evident. ABDOMEN: The large hiatal hernia appears to have been mostly reduced but the intra-abdominal stomach is now gr ossly dilated, measuring 22 cm by 13 cm and the GE junction and lower esophagus appear edematous. Mi ld fluid noted around the stomach. LIVER: There are no focal hepatic lesions evident. No dilated intrahepatic ducts. GALLBLADDER/BILIARY: No obvious gallbladder pathology. CBD is not dilated. PANCREAS: No evidence of pancreatic mass nor dilatation of the pancreatic duct. SPLEEN: Spleen is not enlarged. No obvious intrasplenic lesions. Splenic and portal veins are paten t. ADRENALS: There are no significant adrenal masses. KIDNEYS:In the inferior pole of the right kidney which peripherally calcified, this cysts measuring 8 by 6 cm. Smaller cortical cysts are seen bilaterally all measuring less than 1 cm. No solid renal masses. No calculi. No hydronephrosis. No solid renal masses. No calculi nor hydronephrosis.. ABDOMINAL AORTA: Abdominal aorta is not enlarged. Celiac and superior mesenteric arteries are patent . Inferior mesenteric artery also patent. LYMPH NODES:There is no retroperitoneal nor paraaortic adenopathy. ABDOMINAL WALL: No evidence of significant anterior abdominal wall nor inguinal hernia. GI: Colon is collapsed. Small bowel loops are not distended. Gastric outlet obstruction. PELVIS: GI: No evidence of appendicitis.Sigmoid diverticuli. No diverticulitis of the sigmoid evident. LYMPH NODES: There is no intrapelvic nor inguinal adenopathy. REPRODUCTIVE: Pessary noted in the vagina. Uterus size upper normal. No abnormal adnexal masses. N o free fluid in the pelvis. URINARY BLADDER: Single air bubble noted in the bladder probably related to instrumentation. OSSEOUS: T12 superior endplate mild compression fracture but does not appear acute. No acute fractur es. No osseous lesions. IMPRESSION: 1. The newly intra-abdominal stomach is now grossly distended. The lower esophagus is edematous. Mi ld ascites. Small bowel loops distal to the stomach are not dilated and the colon is collapsed. No obvious free air at this time. 2. Other findings as above. Called by myself to ER provider. RADIATION DOSE DELIVERED: 1,096.63mGy.cm Total DLP DATA REPOSITORY: All CT scans at this facility are submitted to the National Radiology Data Registry (NRDR) Dose Index Registry (DIR) with the [employer] ([employer]). RADIATION OPTIMIZATION: All CT scans at this facility use at least one of these dose optimization te chniques: automated exposure control; mA and/or kV adjustment per patient size (includes targeted exa ms where dose is matched to clinical indication); or iterative reconstruction.
[2022-07-22] MEDS: Ondansetron 4 MG/2 ML VIAL IVP ×2 (14:58→17:59)
[2022-07-22] MEDS: MORPHine 10 MG/ML VIAL 4 MG IVP (14:59)
[2022-07-22] MEDS: Normal Saline 1,000 ML 1000 ML IV (15:00)
[2022-07-22 15:20] LABS: Abs Immature Grans 0.02 10^3/uL (0.0-0.06); Absolute Basophil Count 0.05 10^3/uL (0.0-0.2); Absolute Eosinophil Count 0.09 10^3/uL (0.0-0.7); Absolute Lymphocyte Count 2.18 10^3/uL (1.2-3.4); Absolute Monocyte Count 0.61 10^3/uL (0.1-0.8); Absolute Neutrophil Count 4.86 10^3/uL (1.2-6.7); Basophils % 0.6; Eosinophils % 1.2; HCT 41.1 % (36.0-46.0); HGB 13.5 g/dL (11.2-15.7); Immature Grans % 0.3; Lymphocytes % 27.9; MCHC 32.8 % (32.0-36.0); MCV 88 fL (80-95); MPV 9.9 fL (8.0-11.0); Monocytes % 7.8; Neutrophils % 62.2; Platelet Count 358 10^3/uL (130-400); RBC 4.65 10^6/uL (3.93-5.22); RDW 13.2 % (11.7-14.6); RDW-SD 42.7 fL; WBC 7.81 10^3/uL (4.4-10.8)
[2022-07-22 15:34] LABS: ALT 29 U/L (14-59); AST 24 U/L (15-37); Albumin 3.3 g/dL (3.4-5.0); Alkaline Phosphatase 72 U/L (46-116); Anion Gap 11.4 mmol/L (3-11); BUN 13 mg/dL (7-18); Bilirubin, Total 0.5 mg/dL (0.2-1.0); CO2 25.6 mmol/L (21.0-32.0); Calcium 8.9 mg/dL (8.5-10.1); Chloride 105 mmol/L (98-107); Estimated GFR 61.36 (mL/min/1.73m2); Glucose 149 mg/dL (74-106); Magnesium 1.9 mg/dL (1.8-2.4); Potassium 3.8 mmol/L (3.5-5.1); Sodium 142 mmol/L (136-145)
[2022-07-22 15:39] LABS: Lipase 29 U/L (16-77); Troponin I < 50 ng/L (<or=60)
[2022-07-22] MEDS: Normal Saline - Diluent 50 ML VIAL IJ (15:51)
[2022-07-22] MEDS: Omnipaque 350 MG/ML 100 ML BTL IJ (15:52)
[2022-07-22] MEDS: Normal Saline Flush 10 ML SYR IVP ×2 (15:55→17:59)
[2022-07-22] MEDS: POTASSIUM CHLORIDE 10 MEQ/100 ML BAG 100 MEQ IVPB (16:15)
--- NOTE | 2022-07-22 16:23 | W.EDPROG ---
Date of service: 07/22/22 Time of Service: 16:23 Medical Decision Making I received signout on this 67-year-old female who is status post recent lysis of adhesions at [facility] now with recurrent abdominal pain. She is pending CT scan. 4:15 PM Comprehensive metabolic panel with no CLAIRE. Reassuring normal magnesium. CT scan showing newly dilated stomach with distention and edematous lower esophagus. Mild ascites. Will consult general surgery at [facility]. Negative troponin. Normal lipase. On reassessment patient was quite uncomfortable. I offered her an NG tube but she was adamant and wanted to decline. I will treat her with 4 mg of IV morphine. 5:41 PM From [facility] I spoke with Dr. Hayes from cardio thoracic surgery. He advised that the patient should be transferred to [facility]. I spoke with ED attending, Dr. Luna at [facility]. She graciously accepted the patient ED to ED now. We will send with a basic crew and will premedicate with 4 mg of morphine. Sign Out Sign Out Data: Sign Out Comment: Mrs. Keen is a 67-year-old lady status post lysis of adhesions at [facility] approximately 2 weeks ago who presents to the emergency room with new onset abdominal pain. This is worrisome for recurrence of obstruction. Work-up in progress. Mild hypokalemia Last updated by Giuseppe Sol MD at 07/22/22 15:39 Discharge Plan Disposition Patient Disposition: Transfer-Acute Inpatient Care Specific Acute Inpt Facility: [facility] Discharge Details Clinical Impression: Abdominal distension, Abdominal pain, Gastric outlet obstruction Primary Care Provider: Rosalind Akins ED Provider: Tomas Perez [place] Meds and New Rx's Prescriptions: No Action zinc acetate 50 mg (zinc) capsule 50 mg PO BID ascorbic acid (vitamin C) 1,000 mg capsule 1 g PO BID Patient Comments: 03/22/22- pt reports taking one pill of Vitamin C twice a day, thinks that it might be 1000 mg. vitamin B complex Tablet 1 tab PO DAILY aspirin 81 mg tablet,delayed release (DR/EC) 81 mg PO DAILY bupropion HCl 150 mg tablet extended release 24 hr 150 mg PO QAM loperamide 2 mg capsule 4 mg PO TID PRN alendronate 70 mg tablet 70 mg PO QWEEK metformin 1,000 mg tablet 1,000 mg PO BID losartan 100 mg tablet 100 mg PO DAILY hydrochlorothiazide 25 mg tablet 25 mg PO DAILY atorvastatin 40 mg tablet 40 mg PO QHS Myrbetriq 50 mg tablet extended release 24 hr 50 mg PO DAILY metoprolol succinate 100 mg tablet extended release 24 hr 100 mg PO DAILY amlodipine 10 mg tablet 10 mg PO DAILY hyoscyamine sulfate 0.375 mg tablet extended release 12 hr 0.375 mg PO Q12H PRN citalopram 20 mg tablet 40 mg PO DAILY cholestyramine (with sugar) 4 gram powder 1 pwd PO DAILY Qty: 378 0RF Rx Instructions: administer w/meal; avoid other meds within 1hr before or 4-6hr after dose budesonide 3 mg capsule,delayed,extend.release 3 mg PO DAILY Qty: 84 2RF Rx Instructions: take 3 tablets every day Discharge Data Discharge Date/Time-TO BE ENTERED AT DEPARTURE: 07/22/22 18:28
[2022-07-22] MEDS: MORPHine 4 MG/ML SYR IVP ×2 (16:52→18:18)
[2022-07-22 17:00] VITALS: BP 141/50
[2022-07-22 17:30] VITALS: BP 150/105
[2022-07-22 17:48] VITALS: BP 147/88
[2022-07-22 17:56] VITALS: BP 152/100
[2022-07-22 17:57] VITALS: BP 155/75; PULSE 79; RESP 16; O2SAT 94
== END 2022-07-22 18:28 | disposition short-term general hospital (02) ==
PROVIDERS: Emergency Medicine; Emergency Provider Emergency Medicine; PCP Nurse Practitioner Family
DX: R10.9 Unspecified abdominal pain (principal); R14.0 Abdominal distension (gaseous); K31.1 Adult hypertrophic pyloric stenosis; E87.6 Hypokalemia
CPT/HCPCS: 80053; 83690; 96365; 96375; 96376; 99285; 74177; 83735; 84484; 85025; J2270; J2405; J3480; J3490

== ENCOUNTER 2022-08-04 12:44 | Outpatient (CLI) | payer OTHER, SELFPAY ==
[2022-08-04 10:21] LABS: Anion Gap 5.9 mmol/L (3-11); BUN 28 mg/dL (7-18); CO2 28.1 mmol/L (21.0-32.0); CREATININE 0.9 mg/dL (0.55-1.02); Calcium 8.8 mg/dL (8.5-10.1); Chloride 106 mmol/L (98-107); Estimated GFR 69.64 (mL/min/1.73m2); Glucose 60 mg/dL (74-106); Magnesium 1.8 mg/dL (1.8-2.4); Potassium 3.9 mmol/L (3.5-5.1); Sodium 140 mmol/L (136-145)
== END 2022-08-04 12:45 | disposition home or self-care (01) ==
LOC: LBO 12:46
PROVIDERS: PCP Nurse Practitioner Family; Visit Provider Physician Assistant Surgical
DX: E87.6 Hypokalemia (principal); E83.42 Hypomagnesemia
CPT/HCPCS: 36415; 80048; 83735

== ENCOUNTER 2022-08-29 14:34 | Emergency (ER) | payer OTHER, SELFPAY ==
[2022-08-29 14:36] VITALS: BP 139/76; PULSE 62; RESP 15; TEMP 36.9; O2SAT 99
--- NOTE | 2022-08-29 14:45 | DI.CT_ITS ---
Exam(s) CT ABDOMEN PELVIS W EXAM: CT ABDOMEN PELVIS W CLINICAL HISTORY: hx SBO, abdominal pain and bloating. TECHNIQUE: Imaging Protocol: Axial computed tomography images with coronal and sagittal reformatted images were created and reviewed CONTRAST MATERIAL: Intravenous: Omnipaque 350 Contrast volume:100 ml Oral: no COMPARISON: CT CT ABDOMEN PELVIS W from 07/22/2022 FINDINGS: ABDOMEN: Lung Bases: Normal where visualized. Liver: Normal density. No measurable mass. Gallbladder and biliary tract: No radiodense calculus or dilation. Pancreas: Normal density, no abnormal calcifications or inflammatory process. Spleen: Normal. Kidneys: Normal size, contour and axis. No radiodense stones or obstructive uropathy. Large right re nal cysts again noted. No suspicious masses seen. Adrenal glands: No masses seen. Abdominal Aorta: Abdominal portion non-dilated. Soft tissues: Small fatty containing umbilical hernia. PELVIS: Bladder: No gross wall thickening. No calculi.No focal mass. Bowel: Status post appendectomy.. Marked distension of the ascending colon, distended with fluid sto ol and air. No abrupt transition point. A gradual tapering of diameter of colon at splenic flexure. Mild distention of the descending colon. Severe diverticulosis is again noted. No evidence of div erticulitis. No bowel wall thickening. Suture material at fundus of stomach. Stomach and small bow el are not distended. Peritoneal cavity: No ascites, collection or mesenteric inflammatory response. Bones: Degenerative changes. Reproductive organs: Pessary. Small uterine fibroid. Lymph nodes: Unremarkable. Impression: Marked distention with air in fluid of the ascending colon without focal transition point. Severe diverticulosis. No evidence of diverticulitis. Findings called to [place], emergency department provider. RADIATION DOSE DELIVERED: 1,072.79mGy.cm Total DLP DATA REPOSITORY: All CT scans at this facility are submitted to the National Radiology Data Registry (NRDR) Dose Index Registry (DIR) with the [employer] (ACR). RADIATION OPTIMIZATION: All CT scans at this facility use at least one of these dose optimization te chniques: automated exposure control; mA and/or kV adjustment per patient size (includes targeted exa ms where dose is matched to clinical indication); or iterative reconstruction.
[2022-08-29 15:09] LABS: Abs Immature Grans 0.02 10^3/uL (0.0-0.06); Absolute Basophil Count 0.09 10^3/uL (0.0-0.2); Absolute Eosinophil Count 0.07 10^3/uL (0.0-0.7); Absolute Lymphocyte Count 2.03 10^3/uL (1.2-3.4); Absolute Monocyte Count 0.76 10^3/uL (0.1-0.8); Basophils % 1.1; Eosinophils % 0.9; HGB 13.4 g/dL (11.2-15.7); Immature Grans % 0.3; Lymphocytes % 25.8; MCH 30.3 pg (27.0-33.0); MCHC 33.5 % (32.0-36.0); MCV 91 fL (80-95); MPV 9.7 fL (8.0-11.0); Monocytes % 9.7; Neutrophils % 62.2; Platelet Count 244 10^3/uL (130-400); RBC 4.42 10^6/uL (3.93-5.22); RDW-SD 46.4 fL; WBC 7.87 10^3/uL (4.4-10.8)
[2022-08-29] MEDS: Lactated Ringers 1,000 ML 500 ML IV (15:10)
[2022-08-29] MEDS: MORPHine 4 MG/ML SYR IVP (15:11)
[2022-08-29] MEDS: Ondansetron 4 MG/2 ML VIAL IVP ×2 (15:11→18:29)
--- NOTE | 2022-08-29 15:14 | ED.GENADUL_ITS ---
Discharge Plan Disposition Patient Disposition: Transfer-Acute Inpatient Care Specific Acute Inpt Facility: [facility] Discharge Details Clinical Impression: Colon distention Primary Care Provider: Rosalind Akins ED Provider: Tomas Perez Home Meds and New Rx's Prescriptions: No Action zinc acetate 50 mg (zinc) capsule 50 mg PO BID ascorbic acid (vitamin C) 1,000 mg capsule 1 g PO BID Patient Comments: 03/22/22- pt reports taking one pill of Vitamin C twice a day, thinks that it might be 1000 mg. vitamin B complex Tablet 1 tab PO DAILY aspirin 81 mg tablet,delayed release (DR/EC) 81 mg PO DAILY bupropion HCl 150 mg tablet extended release 24 hr 150 mg PO QAM loperamide 2 mg capsule 4 mg PO TID PRN alendronate 70 mg tablet 70 mg PO QWEEK metformin 1,000 mg tablet 1,000 mg PO BID losartan 100 mg tablet 100 mg PO DAILY hydrochlorothiazide 25 mg tablet 25 mg PO DAILY atorvastatin 40 mg tablet 40 mg PO QHS Myrbetriq 50 mg tablet extended release 24 hr 50 mg PO DAILY metoprolol succinate 100 mg tablet extended release 24 hr 100 mg PO DAILY amlodipine 10 mg tablet 10 mg PO DAILY hyoscyamine sulfate 0.375 mg tablet extended release 12 hr 0.375 mg PO Q12H PRN citalopram 20 mg tablet 40 mg PO DAILY cholestyramine (with sugar) 4 gram powder 1 pwd PO DAILY Qty: 378 0RF Rx Instructions: administer w/meal; avoid other meds within 1hr before or 4-6hr after dose budesonide 3 mg capsule,delayed,extend.release 3 mg PO DAILY Qty: 84 2RF Rx Instructions: take 3 tablets every day Discharge Data Discharge Date/Time-TO BE ENTERED AT DEPARTURE: 08/29/22 18:30 Medical Decision Making patient is a pleasant 67-year-old female past medical history significant for IBS, hiatal hernia with repair, postmenopausal bleeding,Depression, type 2 diabetes, diverticulosis, hypertension, GERD, MARIE, presenting today with chief complaint of recurrent abdominal pain. She was here few months ago and was diagnosed with an obstruction and transferred to [facility] where she had undergone her hiatal hernia repair. At that time, patient was admitted to thoracic surgery. She states that the pain began at noon today. States she had 6 soft bowel movements today and has been had passing a large amount of flatus. States that perhaps she had a low-grade fever today but is unclear. States that pain is in the same location as prior and that she has had some abdominal bloating which is similar to what she had last time as well. On exam, patient appears nontoxic. She does appear uncomfortable and is clasping her abdomen. Hemodynamically stable. Lungs are clear, normal cardiac exam. She denies any shortness of breath or chest pain. Abdomen is diffusely tender but nonfocal with no peritoneal findings. Patient does endorse vaginal bleeding but states is being worked up that she has been having some postmenopausal bleeding and is scheduled for a hysterectomy. Primarily concern for potential obstruction particular given the patient's history of adhesions. However, also considered diverticulitis, gastroenteritis versus other. Has not had any antibiotics to put her at risk for C. difficile nor she had any watery diarrhea. Labs reviewed. No leukocytosis. Stable H&H. CMP concerning for a BUN of 26 but otherwise no acute abnormality. At the end of my shift, care transition to Dr. Perez with imaging pending. Patient is receiving IV fluids. She received Zofran for nausea and morphine for discomfort. HPI General Date/Time Provider Initiated Documentation: 08/29/22 14:53 . Limitations to Documentation: no limitations . Information obtained by: patient, RN notes reviewed and old records reviewed . History of Present Illness 67 year old F presents to the emergency department with the chief complaint of abdominal pain, bloaaating, described as moderate and similar to prior episodes (hx of obstruction associated with surgical adhesions), Quality is described as aching, and is localized to the abdomen. Patient reports no radiation. Patient started experiencing this hour(s) (began at noon) and it has been constant. No relieving factors improve symptom(s), No exacerbating factors reported . Patient notes loss of appetite, malaise and nausea/vomiting (nausea, no vomiting); denies chest pain, cough, fever/chills and shortness of breath. Patient did receive the following treatments prior to arrival, none Related Data Home Medications Medication Instructions Recorded Confirmed alendronate 70 mg tablet 70 mg PO QWEEK 02/24/22 08/29/22 amlodipine 10 mg tablet 10 mg PO DAILY 02/24/22 08/29/22 aspirin 81 mg tablet,delayed 81 mg PO DAILY 02/24/22 08/29/22 release atorvastatin 40 mg tablet 40 mg PO QHS 02/24/22 08/29/22 bupropion HCl 150 mg 24 hr tablet, 150 mg PO QAM 02/24/22 08/29/22 extended release hydrochlorothiazide 25 mg tablet 25 mg PO DAILY 02/24/22 08/29/22 hyoscyamine sulfate 0.375 mg 0.375 mg PO Q12H PRN 02/24/22 08/29/22 tablet,extended release,12 hr loperamide 2 mg capsule 4 mg PO TID PRN 02/24/22 08/29/22 losartan 100 mg tablet 100 mg PO DAILY 02/24/22 08/29/22 metformin 1,000 mg tablet 1,000 mg PO BID 02/24/22 08/29/22 metoprolol succinate 100 mg 100 mg PO DAILY 02/24/22 08/29/22 tablet,extended release 24 hr mirabegron 50 mg tablet,extended 50 mg PO DAILY 02/24/22 08/29/22 release 24 hr (Myrbetriq) citalopram 20 mg tablet 40 mg PO DAILY 03/11/22 08/29/22 zinc acetate 50 mg (zinc) capsule 50 mg PO BID 03/11/22 08/29/22 ascorbic acid (vitamin C) 1,000 mg 1 g PO BID 03/22/22 08/29/22 capsule cholestyramine (with sugar) 4 gram 1 pwd PO DAILY diarrhea #378 grams 05/05/22 08/29/22 oral powder budesonide 3 mg 3 mg PO DAILY lymphocytic colitis 05/11/22 08/29/22 capsule,delayed,extended release #84 caps vitamin B complex 1 tab PO DAILY 06/29/22 08/29/22 Previous Rx's Medication Instructions Recorded cholestyramine (with sugar) 4 gram 1 pwd PO DAILY diarrhea #378 grams 05/05/22 oral powder budesonide 3 mg 3 mg PO DAILY lymphocytic colitis 05/11/22 capsule,delayed,extended release #84 caps Allergies Allergy/AdvReac Type Severity Reaction Status Date / Time Sulfa (Sulfonamide Allergy Unknown Verified 08/29/22 14:40 Antibiotics) lisinopril AdvReac Intermediate cough Verified 08/29/22 14:40 General Stated Complaint: Abd Prob BARBARA: 3 Review of Systems Constitutional Constitutional: Reports as per HPI, Denies chills, Denies fatigue, Denies fever(s) and Denies headache(s) ENT Ears, Nose, Mouth, and Throat: Denies headache(s) Cardiovascular Cardiovascular: Reports as per HPI, Denies chest pain and Denies dyspnea Respiratory Respiratory: Reports as per HPI, Denies cough and Denies dyspnea Gastrointestinal Gastrointestinal: Reports as per HPI Musculoskeletal Musculoskeletal: Reports as per HPI and Denies back pain Integumentary/Breasts Skin/Breast: Reports as per HPI and Denies rash Neurologic Neurologic: Reports as per HPI and Denies headache(s) Endocrine Endocrine: Denies fatigue PFSH All Active Problems (Updated 08/29/22 @ 17:46 by Tomas Perez MD) Abdominal pain, acute (Acute) Diarrhea (Chronic) Hiatal hernia (Chronic) Patient's entire stomach is in her chest on CT scan. Diverticulosis (Acute) Postmenopausal bleeding (Acute) Lymphocytic colitis (Acute) Vaginal erosion (Acute) Colon distention (Acute) Medical History (Updated 08/29/22 @ 17:46 by Tomas Perez MD) Benign paroxysmal positional vertigo Depression Diabetes mellitus, type II Diverticulosis (~07/17/14) Essential hypertension GERD (gastroesophageal reflux disease) Hearing loss, bilateral Hyperlipidemia Kidney stone MARIE (obstructive sleep apnea) Osteoporosis Presence of pessary Uterine prolapse Surgical History (Updated 06/29/22 @ 11:52 by Eli Mckinnno MD) History of anterior colporrhaphy with posterior colporrhaphy and sacrospinous vaginal vault fixation 12/25/[address] Anderson at [facility] History of appendectomy History of suburethral sling procedure with cystoscopy 12/25/[address] Anderson at [facility] Social History Smoking/Tobacco Use Status: Former Tobacco Use Smoking risk assessment performed?: Yes Alcohol Intake: current Alcohol Intake frequency: a few times a week Alcohol type: wine Drug use: Never Substance use type: does not use Do you feel safe at home: Yes (pt lives alone) Female Reproductive History Menstrual Age of Menarche: 9 Duration of menses: 3-5 days Menopause type: natural History History 11 Para 4 Hx # Term Pregnancies Multiple births Hx # Pregnancies Ectopic pregnancies AB induced Hx Number of Living Children AB spontaneous 8 Past Pregnancies Del. Date GA/Weeks # Preg Succ Route Wgt Sex Labor Lgth Anesth esia Location Prov Complic 06/14/73 vaginal Female [place] 06/18/74 4479.225 g Female [place] 05/30/77 vaginal 4365.827 g Female [place] 08/10/80 vaginal 4762.72 g Male Exam Const General: cooperative, healthy appearing, uncomfortable, no acute distress and well developed Nutritional Appearance: well nourished and overweight Orientation: alert and awake HENMT Head: normal to inspection Mouth: moist mucous membranes Resp Effort & Inspection: normal respiratory effort, able to speak in complete sentences and no respiratory distress Auscultation: clear to auscultation bilaterally, no rales, no rhonchi and no wheezes Cardio Rate: regular rate Rhythm: regular rhythm Heart Sounds: S1 normal and S2 normal GI Inspection: normal to inspection Palpation: soft, not firm, no guarding, not rigid and tender (diffusely tender) Nevarez's sign negative and with no rebound tenderness Percussion: normal to percussion Auscultation: hypoactive bowel sounds Back/Spine/Pelvis Back: no CVA tenderness Skin General skin exam: no rashes or lesions noted Trauma: no lacerations or abrasions Neuro General: patient alert and patient awake Cognition: normal cognition Speech: speech normal Psych Appearance: grossly normal and well kempt Mental Status: mental status grossly normal Speech and Movement: speech and movement normal Course Vital Signs Vital signs: Vital Signs Temperature 36.9 C 08/29/22 14:36 Pulse 62 08/29/22 14:36 Respiratory Rate 15 08/29/22 14:36 Blood Pressure 139/76 08/29/22 14:36 Pulse Oximetry 99 08/29/22 14:36 Temperature 36.9 C 08/29/22 14:36 Temperature Source Temporal Artery Scan 08/29/22 14:36 Pulse 62 08/29/22 14:36 Respiratory Rate 15 08/29/22 14:36 Respiratory Effort Normal, Non-Labored 08/29/22 14:50 Blood Pressure 139/76 08/29/22 14:36 Blood Pressure Position Sitting 08/29/22 14:36 Pulse Oximetry 99 08/29/22 14:36 Oxygen Delivery Method Room Air 08/29/22 14:36 Oxygen Flow Rate 0 08/29/22 14:36 Pain Level 8 08/29/22 14:36 Sign Out Sign Out Data: Sign Out Comment: Care transitioned to Dr. Perez with imaging pending. Patient has received fluids, zofran and morphine. Concern for obstruction. Last updated by [place] PA at 08/29/22 16:30
[2022-08-29 15:24] LABS: ALT 30 U/L (14-59); AST 24 U/L (15-37); Albumin 3.5 g/dL (3.4-5.0); Alkaline Phosphatase 77 U/L (46-116); Anion Gap 9.9 mmol/L (3-11); BUN 26 mg/dL (7-18); Bilirubin, Total 0.4 mg/dL (0.2-1.0); CO2 25.1 mmol/L (21.0-32.0); Calcium 9.2 mg/dL (8.5-10.1); Chloride 106 mmol/L (98-107); Estimated GFR 61.36 (mL/min/1.73m2); Glucose 88 mg/dL (74-106); Lipase 32 U/L (16-77); Potassium 3.9 mmol/L (3.5-5.1); Sodium 141 mmol/L (136-145); Total Protein 7.8 g/dL (6.4-8.2)
[2022-08-29] MEDS: Normal Saline - Diluent 50 ML VIAL IJ (16:07)
--- NOTE | 2022-08-29 16:08 | ED.PROG_ITS ---
Date of service: 08/29/22 Time of Service: 16:08 Medical Decision Making I received signout on this 67-year-old female who is status post remote ventral hernia repair at [facility] several months ago. She arrives in the setting of abdominal bloating. She is pending a CT scan of her abdomen and pelvis without contrast. Her comprehensive metabolic panel is reassuring with no significant LFT abnormalities and no CLAIRE nor any acute electrolyte abnormalities. She has a normal lipase not consistent with pancreatitis normal magnesium. She also has a CBC which lacks leukocytosis anemia and thrombocytopenia. 5pm I spoke to Dr. Verduzco Camp advised ACS transfer to [facility]. She will touch base with Dr. Hicks. 5:45 PM I spoke with Dr. Hicks from general surgery. He requested an ED landing at [facility]. I spoke with Dr. Luna from the ED who graciously excepted the patient. We will offer repeat morphine and ondansetron. Patient has received IV fluids in the ED. We will send her via basic crew. Sign Out Sign Out Data: Sign Out Comment: Care transitioned to Dr. Perez with imaging pending. Patient has received fluids, zofran and morphine. Concern for obstruction. Last updated by [place] PA at 08/29/22 16:30 Discharge Plan Discharge Details Chief Complaint: Abd Prob Primary Care Provider: Rosalind Akins ED Provider: Tomas Perez Home Meds and New Rx's Prescriptions: No Action zinc acetate 50 mg (zinc) capsule 50 mg PO BID ascorbic acid (vitamin C) 1,000 mg capsule 1 g PO BID Patient Comments: 03/22/22- pt reports taking one pill of Vitamin C twice a day, thinks that it might be 1000 mg. vitamin B complex Tablet 1 tab PO DAILY aspirin 81 mg tablet,delayed release (DR/EC) 81 mg PO DAILY bupropion HCl 150 mg tablet extended release 24 hr 150 mg PO QAM loperamide 2 mg capsule 4 mg PO TID PRN alendronate 70 mg tablet 70 mg PO QWEEK metformin 1,000 mg tablet 1,000 mg PO BID losartan 100 mg tablet 100 mg PO DAILY hydrochlorothiazide 25 mg tablet 25 mg PO DAILY atorvastatin 40 mg tablet 40 mg PO QHS Myrbetriq 50 mg tablet extended release 24 hr 50 mg PO DAILY metoprolol succinate 100 mg tablet extended release 24 hr 100 mg PO DAILY amlodipine 10 mg tablet 10 mg PO DAILY hyoscyamine sulfate 0.375 mg tablet extended release 12 hr 0.375 mg PO Q12H PRN citalopram 20 mg tablet 40 mg PO DAILY cholestyramine (with sugar) 4 gram powder 1 pwd PO DAILY Qty: 378 0RF Rx Instructions: administer w/meal; avoid other meds within 1hr before or 4-6hr after dose budesonide 3 mg capsule,delayed,extend.release 3 mg PO DAILY Qty: 84 2RF Rx Instructions: take 3 tablets every day
[2022-08-29] MEDS: Omnipaque 350 MG/ML 100 ML BTL IJ (16:09)
[2022-08-29] MEDS: Normal Saline Flush 10 ML SYR IVP (16:10)
[2022-08-29 17:48] VITALS: BP 144/67; PULSE 50; O2SAT 98
[2022-08-29] MEDS: MORPHine 4 MG/ML SYR (18:27)
== END 2022-08-29 18:30 | disposition short-term general hospital (02) ==
PROVIDERS: Physician Assistant; Emergency Provider Emergency Medicine; PCP Nurse Practitioner Family
DX: R10.31 Right lower quadrant pain (principal); R14.0 Abdominal distension (gaseous); E11.9 Type 2 diabetes mellitus without complications; I10 Essential (primary) hypertension
CPT/HCPCS: 80053; 83690; 96361; 96374; 96375; 96376; 99284; 74177; 83735; 85025; J2270; J2405; J3490

== ENCOUNTER 2022-11-11 18:28 | Outpatient (REF) | payer OTHER, SELFPAY | END 2022-11-11 18:29 | disposition home or self-care (01) | LOC: NCHCN 18:28 | PROVIDERS: PCP Nurse Practitioner Family; Visit Provider Internal Medicine | DX: N30.00 Acute cystitis without hematuria (principal); N20.0 Calculus of kidney; E11.9 Type 2 diabetes mellitus without complications; R82.79 Other abnormal findings on microbiological examination of urine | CPT/HCPCS: 87077; 87086; 87186 ==

== ENCOUNTER 2023-03-01 16:08 | Outpatient (REF) | payer OTHER, SELFPAY ==
[2023-03-01 20:27] LABS: Anion Gap 7.6 mmol/L (3-11); BUN 17 mg/dL (7-18); CO2 26.4 mmol/L (21.0-32.0); CREATININE 0.9 mg/dL (0.55-1.02); Calcium 8.4 mg/dL (8.5-10.1); Calculated LDL 165 mg/dL (<100); Chloride 107 mmol/L (98-107); Cholesterol 245 mg/dL (<200); Estimated GFR 69.64 (mL/min/1.73m2); Glucose 113 mg/dL (74-106); HDL Cholesterol 60 mg/dL (40-60); Potassium 3.9 mmol/L (3.5-5.1); Sodium 141 mmol/L (136-145); Triglyceride 104 mg/dL (<150)
== END 2023-03-01 16:09 | disposition home or self-care (01) ==
LOC: NCHCN 16:08
PROVIDERS: PCP Nurse Practitioner Family; Visit Provider Nurse Practitioner Family
DX: E78.5 Hyperlipidemia, unspecified (principal)
CPT/HCPCS: 80048; 80061

== ENCOUNTER 2023-03-16 15:13 | Outpatient (REF) | payer OTHER, SELFPAY ==
[2023-03-16 18:38] LABS: Bilirubin Negative (Negative); Blood Trace-intact (Negative); Clarity Turbid (Clear); Glucose Negative (Negative); Ketones Negative (Negative); Leukocyte Esterase Moderate (Negative); Nitrite Negative (Negative); Specific Gravity 1.025 (1.005-1.025); Urobilinogen 0.2 mg/dL (Up to 0.2); pH 5.5 (5-8)
[2023-03-16 18:50] LABS: Bacteria Many HPF (Negative); C & S Indicated? Yes; Crystals Few Calcium Oxalate HPF (Negative); Epithelial Cells Few HPF (Negative); Mucus Negative (Negative); RBC 0-2 HPF (0-2); WBC >50 HPF (0-5)
== END 2023-03-16 15:14 | disposition home or self-care (01) ==
LOC: NCHCN 15:13
PROVIDERS: PCP Nurse Practitioner Family; Visit Provider Nurse Practitioner Family
DX: R30.0 Dysuria (principal)
CPT/HCPCS: 87077; 81003; 81015; 87086; 87186

== ENCOUNTER → 2023-08-04 03:11 | Outpatient (CLI) | payer OTHER, SELFPAY ==
--- NOTE | 2023-08-04 | DI.CT_ITS ---
Exam(s) CT ABDOMEN PELVIS W EXAM: CT ABDOMEN PELVIS W CLINICAL HISTORY: ABD PAIN R10.9 TECHNIQUE: Imaging Protocol: Axial computed tomography images with coronal and sagittal reformatted images were created and reviewed. CONTRAST MATERIAL: Intravenous: Omnipaque 350 Contrast volume:100 mL Oral: Yes COMPARISON: CT CT ABDOMEN PELVIS W from 03/07/[address] CHEST/ABD/PEL W from 06/18/[address] ABDOMEN PELVIS W from 07/22/[address] ABDOMEN PELVIS W from 08/29/2022 FINDINGS: ABDOMEN: Lung Bases: Cardiomegaly. Small hiatal hernia. Dependent atelectatic changes are seen in the lung b ases. Liver: Normal density. No measurable mass. Portal, Superior Mesenteric, and Splenic Veins: Unremarkable. Gallbladder and Biliary Tract: No radiodense calculus or dilation. Pancreas: Normal density, no abnormal calcifications or inflammatory process. Spleen: Normal. Adrenals: No masses seen. Kidneys: Normal size, contour and axis. No radiodense stones or obstructive uropathy. Stable bilatera l renal cysts. No follow-up is recommended. Abdominal Aorta: Abdominal portion non-dilated. Atherosclerotic calcification is present. Bowel: There is diverticulosis of the colon without evidence of acute diverticulitis. Postsurgical c hanges are seen at the gastroesophageal junction. There is no evidence of bowel obstruction or bowel wall thickening. There is a small supraumbilical anterior abdominal wall hernia containing a short segment of small bowel. No evidence of incarceration or obstruction results. No evidence of appendi citis. Peritoneal Cavity: No ascites, collection or mesenteric inflammatory response. No free air. Lymph Nodes: Within normal limits. Bones: Within normal limits for the patient's age. There is an old compression fracture of T12. Soft Tissues: There is a small fat containing infraumbilical abdominal wall hernia. PELVIS: Bladder: Symmetric distention, no gross wall thickening. Reproductive Organs: There is a fibroid in the uterus fundus. There is a pessary in place. Lymph Nodes: Within normal limits. Bones: Within normal limits for the patient's age. IMPRESSION: 1. No acute abdominal or pelvic process. 2. Small supraumbilical anterior abdominal wall hernia containing a short segment of small bowel. Th ere is no evidence of incarceration or obstruction of the bowel. 3. Colonic diverticulosis without evidence of acute diverticulitis. RADIATION DOSE DELIVERED: 1,154.91mGy.cm Total DLP DATA REPOSITORY: All CT scans at this facility are submitted to the National Radiology Data Registry (NRDR) Dose Index Registry (DIR) with the [employer] (ACR). RADIATION OPTIMIZATION: All CT scans at this facility use at least one of these dose optimization te chniques: automated exposure control; mA and/or kV adjustment per patient size (includes targeted exa ms where dose is matched to clinical indication); or iterative reconstruction.
[2023-08-04 08:44] LABS: CREATININE 0.9 mg/dL (0.55-1.02)
[2023-08-04 08:49] LABS: C-Reactive Protein < 0.50 mg/dL (<or=0.5)
[2023-08-04] MEDS: Barium Sulfate 2% W/V-Berry Smoothie 450 ML BTL PO (09:01)
[2023-08-04] MEDS: Barium Sulfate 2% W/V-Creamy Vanilla Smoothie 450 ML BTL PO (09:01)
[2023-08-04] MEDS: Omnipaque 350 MG/ML 500 ML BTL-Imaging package 100 ML IJ (10:13)
[2023-08-04] MEDS: Normal Saline - Diluent 50 ML VIAL IJ (10:14)
== END ==
PROVIDERS: PCP Nurse Practitioner Family; Visit Provider Nurse Practitioner Family
DX: K45.0 Other specified abdominal hernia with obstruction, without gangrene (principal)
CPT/HCPCS: 74177; 82565; 86140

== ENCOUNTER 2023-11-06 18:37 | Outpatient (REF) | payer OTHER, SELFPAY | END 2023-11-06 18:38 | disposition home or self-care (01) | LOC: NCHCN 18:37 | PROVIDERS: PCP Nurse Practitioner Family; Visit Provider Nurse Practitioner Family | DX: N39.0 Urinary tract infection, site not specified (principal); R39.89 Other symptoms and signs involving the genitourinary system; B96.29 Other Escherichia coli [E. coli] as the cause of diseases classified elsewhere | CPT/HCPCS: 87077; 87086; 87186 ==

== ENCOUNTER 2023-11-13 19:50 | Outpatient (REF) | payer OTHER, SELFPAY ==
[2023-11-13 20:05] LABS: ALT 24 U/L (14-59); AST 20 U/L (15-37); Albumin 3.5 g/dL (3.4-5.0); Alkaline Phosphatase 67 U/L (46-116); Anion Gap 5.8 mmol/L (3-11); BUN 19 mg/dL (7-18); Bilirubin, Total 0.59 mg/dL (0.2-1.0); CO2 28.2 mmol/L (21.0-32.0); CREATININE 1.1 mg/dL (0.55-1.02); Calcium 9.3 mg/dL (8.5-10.1); Chloride 104 mmol/L (98-107); Estimated GFR 54.39 (mL/min/1.73m2); Glucose 165 mg/dL (74-106); Potassium 3.9 mmol/L (3.5-5.1); Sodium 138 mmol/L (136-145); Total Protein 7.7 g/dL (6.4-8.2)
== END 2023-11-13 19:51 | disposition home or self-care (01) ==
LOC: NCHCN 19:50
PROVIDERS: PCP Nurse Practitioner Family; Visit Provider Nurse Practitioner Family
DX: E78.5 Hyperlipidemia, unspecified (principal)
CPT/HCPCS: 80053

== ENCOUNTER 2024-07-15 12:52 | Outpatient (REF) | payer MEDICARE, SELFPAY ==
[2024-07-15 19:20] LABS: Bilirubin Negative (Negative); Blood Negative (Negative); Clarity Cloudy (Clear); Glucose 100 mg/dL (Negative); Ketones Negative (Negative); Leukocyte Esterase Moderate (Negative); Nitrite Negative (Negative); Specific Gravity 1.025 (1.005-1.025); Urobilinogen 0.2 mg/dL (Up to 0.2); pH 5.5 (5-8)
[2024-07-15 19:28] LABS: Bacteria Negative HPF (Negative); Epithelial Cells Many HPF (Negative); RBC 0-2 HPF (0-2)
[2024-07-15 19:29] LABS: C & S Indicated? No/Sq. Contamination; Crystals Many Amorphous HPF (Negative); Mucus Trace (Negative)
== END 2024-07-15 12:53 | disposition home or self-care (01) ==
LOC: NCHCN 12:52
PROVIDERS: PCP Nurse Practitioner Family; Visit Provider Nurse Practitioner Family
DX: R35.0 Frequency of micturition (principal); B96.29 Other Escherichia coli [E. coli] as the cause of diseases classified elsewhere
CPT/HCPCS: 81003; 81015

== ENCOUNTER 2024-09-10 03:07 | Outpatient (CLI) | payer MEDICARE, SELFPAY ==
--- NOTE | 2024-09-10 | DI.CT_ITS ---
Exam(s) CT ABDOMEN PELVIS W EXAM: CT ABDOMEN PELVIS W CLINICAL HISTORY: Abd pain, R10.9 TECHNIQUE: Imaging Protocol: Axial computed tomography images with coronal and sagittal reformatted images were created and reviewed. CONTRAST MATERIAL: Intravenous: Omnipaque 350 Contrast volume:100 mL Oral: Yes COMPARISON: CT CT ABDOMEN PELVIS W from 08/29/[address] ABDOMEN PELVIS W from 08/04/2023 FINDINGS: ABDOMEN: Lung Bases: No acute abnormality. Liver: Normal density. No measurable mass. Portal, Superior Mesenteric, and Splenic Veins: Unremarkable. Gallbladder and Biliary Tract: No radiodense calculus or dilation. Pancreas: Normal density, no abnormal calcifications or inflammatory process. Spleen: Normal. Adrenals: No masses seen. Kidneys: Normal size, contour and axis. No radiodense stones or obstructive uropathy. There are bilateral tiny hypodensities in the kidneys. They are too small for further characterization but likely reflect small cysts. There is again seen a cyst in the lower pole of the right kidney with thin wall calcification. It is unchanged. No follow-up is recommended. Abdominal Aorta: Abdominal portion non-dilated. Atherosclerotic calcification is present. Bowel: There is diverticulosis of the colon without evidence of acute diverticulitis. There is no evidence of bowel obstruction or bowel wall thickening. There is a supraumbilical hernia containing a short loop of small bowel. There is no evidence of obstruction or incarceration of the bowel. There is a small paraumbilical hernia containing a short knuckle of small bowel without evidence of incarceration or obstruction. (Series 8, images 45 through 56). There is no evidence of appendicitis. Peritoneal Cavity: No ascites, collection or mesenteric inflammatory response. No free air. Lymph Nodes: Within normal limits. Bones: Within normal limits for the patient's age. There is an old T11 compression deformity. Soft Tissues: Unremarkable. PELVIS: Bladder: Symmetric distention, no gross wall thickening. Reproductive Organs: There is a pessary in place. Uterine fibroid is present measuring 2.8 cm. Lymph Nodes: Within normal limits. Bones: Within normal limits for the patient's age. IMPRESSION: 1. No acute abdominal or pelvic process. 2. There are 2 anterior abdominal wall small bowel containing hernias. No evidence of incarceration or obstruction. 3. Stable right renal cyst. RADIATION DOSE DELIVERED: 608.26mGy.cm Total DLP DATA REPOSITORY: All CT scans at this facility are submitted to the National Radiology Data Registry (NRDR) Dose Index Registry (DIR) with the [employer] ([employer]). RADIATION OPTIMIZATION: All CT scans at this facility use at least one of these dose optimization techniques: automated exposure control; mA and/or kV adjustment per patient size (includes targeted exams where dose is matched to clinical indication); or iterative reconstruction.
[2024-09-10] MEDS: Barium Sulfate 2% W/V-Creamy Vanilla Smoothie 450 ML BTL PO ×2 (08:22→08:23)
[2024-09-10 09:06] LABS: Estimated GFR 92.98 (mL/min/1.73m2)
[2024-09-10] MEDS: Normal Saline - Diluent 50 ML VIAL IJ (10:52)
[2024-09-10] MEDS: Omnipaque 350 MG/ML 100 ML BTL IJ (10:53)
== END 2024-09-10 03:27 ==
PROVIDERS: PCP Nurse Practitioner Family; Visit Provider Nurse Practitioner Family
DX: R10.9 Unspecified abdominal pain (principal); K45.8 Other specified abdominal hernia without obstruction or gangrene
CPT/HCPCS: 74177; 82565; J3490

== ENCOUNTER 2024-10-03 03:18 | Outpatient (CLI) | payer MEDICARE, SELFPAY ==
--- NOTE | 2024-10-03 12:41 | DI.MAMMO_ITS ---
Exam(s) MAMMO SCREENING EXAM: MAMMO SCREENING CLINICAL HISTORY: SCREENING MAMMO Z12.31 TECHNIQUE: Bilateral full field digital CC and MLO mammographic images were obtained with 3D tomosynthesis and utilizing computer aided detection (CAD). COMPARISON: Comparison is made with prior examinations. FINDINGS: Masses/Architectural Distortion: No suspicious masses or areas of architectural distortion are present. Microcalcifications: No suspicious pleomorphic-type are seen. Skin Thickening/Nipple Retraction: None. IMPRESSION: 1. No significant interval change with no specific features of malignancy noted. 2. Unless there is more urgent need, screening mammography is recommended, as per [employer] guidelines. BI-RADS Category 1 - Negative Breast Density - Category B - There are scattered areas of fibroglandular density. Breast density Category C or D implies that the patient has dense breast tissue. Dense breast tissue can make it harder to find cancer on a mammogram. Dense breast tissue is also associated with an increased risk of breast cancer. This information about the result of the mammogram report was provided to the patient to raise their awareness. Use this report when you speak with the patient about their risks for breast cancer, which includes their family history. At that time, you may recommend additional screening tests (Ultrasound or MRI) as these tests may add significant information. A negative radiographic report should not delay biopsy if a dominant or clinically suspicious mass is present. Up to ten percent of cancers are not identified on mammography. A negative report may reinforce clinical impression. Adenosis and dense breasts may obscure an underlying neoplasm. False positive reports average 6 to 10%. Patient will receive a letter notifying them of these results.
--- NOTE | 2024-10-03 13:30 | DI.DEXA_ITS ---
Exam(s) XR DEXA BONE DENSITY W/WO HALLIE EXAM: XR DEXA BONE DENSITY W/WO HALLIE CLINICAL HISTORY: ASYMPTOMATIC MENOPAUSAL Z78.0 TECHNIQUE: COMPARISON: No exams were available for comparison FINDINGS: Lateral Spine Image: Unremarkable. No compression deformities identified. Left hip: Total T-Score: -0.5 Total Z-Score: 1.0 T- and Z-scores: Within normal limits. Lumbar Spine: Total T-Score: 1.3 Total Z-Score: 3.4 T- and Z-scores: Within normal limits. IMPRESSION: No evidence of osteoporosis.
--- NOTE | 2024-10-03 14:31 | DI.RAD_ITS ---
Exam(s) XR KNEE LT 3V AP,LAT,ABEL EXAM: XR KNEE LT 3V AP,LAT,ABEL CLINICAL HISTORY: PAIN LEFT KNEE M25.562. TECHNIQUE: 2D digital imaging was performed. COMPARISON: No exams were available for comparison FINDINGS: 3 views There is satisfactory position alignment of the components of the prosthesis. No fractures. No obvious loosening evident. There appear to be degenerative subarticular cyst in the lateral aspect of the tibial plateau. IMPRESSION: Satisfactory appearance of the prosthesis. DATA REPOSITORY: RADIATION DOSE DELIVERED:
--- NOTE | 2024-10-03 14:31 | DI.RAD_ITS ---
Exam(s) XR LUMBAR SPINE COMPLETE EXAM: XR LUMBAR SPINE COMPLETE CLINICAL HISTORY: LOW BACK PAIN M54.50. TECHNIQUE: 2D digital imaging was performed. COMPARISON: CR,XR XR CHEST 2V PA LATERAL from 06/18/2022 CR XR DEXA BONE DENSITY W/WO HALLIE from 10/03/2024 FINDINGS: 3 views There is sacralization of the L5 segment. There is a superior endplate compression fracture T12 which was evident on lateral chest x-ray of May 2022 and appears unchanged. No new fractures evident. No listhesis nor pars defects. There is multilevel disc space narrowing at L3-4 and L4-5 and L5-S1 levels and there is also facet arthropathy at these levels. Sacroiliac joints appear age-appropriate. There is no scoliosis. IMPRESSION: Multilevel chronic degenerative disc disease. T12 compression fracture which is not new and appears unchanged from 06/18/2022 chest x-ray DATA REPOSITORY: RADIATION DOSE DELIVERED:
== END 2024-10-03 03:38 ==
LOC: DI 03:18
PROVIDERS: PCP Nurse Practitioner Family; Visit Provider Nurse Practitioner Family
DX: S22.080A Wedge compression fracture of T11-T12 vertebra, initial encounter for closed fracture (principal); Z78.0 Asymptomatic menopausal state; Z12.31 Encounter for screening mammogram for malignant neoplasm of breast; Z13.820 Encounter for screening for osteoporosis; Z96.652 Presence of left artificial knee joint; X58.XXXA Exposure to other specified factors, initial encounter
CPT/HCPCS: 73562; 77063; 77067; 77080; 72110

== ENCOUNTER 2024-10-23 15:37 | Outpatient (REF) | payer MEDICARE, SELFPAY | END 2024-10-23 15:38 | disposition home or self-care (01) | LOC: NCHCN 15:37 | PROVIDERS: PCP Nurse Practitioner Family; Visit Provider Nurse Practitioner Family | DX: N89.8 Other specified noninflammatory disorders of vagina (principal) | CPT/HCPCS: 87480; 87510; 87660 ==